=== PATIENT | female | born 1960 | race Caucasian/White ===

== ENCOUNTER → 2016-09-30 | Outpatient (CLI) | payer OTHER | LOC: FIMAGING 11:14 | DX: Z12.31 Encounter for screening mammogram for malignant neoplasm of breast (principal) | CPT/HCPCS: G0202 ==

== ENCOUNTER → 2016-10-07 | Outpatient (CLI) | payer OTHER | LOC: BMCIMAGING 12:28 | DX: Z12.39 Encounter for other screening for malignant neoplasm of breast (principal); R92.0 Mammographic microcalcification found on diagnostic imaging of breast | CPT/HCPCS: G0206 ==

== ENCOUNTER → 2016-10-11 | Day surgery (SDC) | payer OTHER ==
[~2016-10-11] MED LIST: THROMBIN (RECOMBINANT) 5,000 UNIT VIAL TP ONE
== END | disposition home or self-care (01) ==
LOC: FIMAGING 08:41
PROVIDERS: ATTEND Family Medicine
PROC: BH01ZZZ Plain Radiography of Left Breast (ICD-10-PCS; principal; 2016-10-11)
PROC: 0HBU3ZX Excision of Left Breast, Percutaneous Approach, Diagnostic (ICD-10-PCS; principal; 2016-10-11)
DX: R92.0 Mammographic microcalcification found on diagnostic imaging of breast (principal)
CPT/HCPCS: G0206

== ENCOUNTER → 2016-10-25 | Day surgery (SDC) | payer OTHER | END | disposition home or self-care (01) | LOC: FIMAGING 07:25 | PROVIDERS: ATTEND Surgery | PROC: 0HHU31Z Insertion of Radioactive Element into Left Breast, Percutaneous Approach (ICD-10-PCS; principal; 2016-10-25) | PROC: 3E0W3KZ Introduction of Other Diagnostic Substance into Lymphatics, Percutaneous Approach (ICD-10-PCS; 2016-10-25) | DX: R92.0 Mammographic microcalcification found on diagnostic imaging of breast (principal); D05.12 Intraductal carcinoma in situ of left breast | CPT/HCPCS: 19281; 38790; 76098; A9520 ==

== ENCOUNTER → 2016-11-22 | Outpatient (CLI) | payer OTHER | LOC: BRMIMAGING 15:07 | PROVIDERS: ATTEND Internal Medicine Hematology & Oncology | DX: Z13.820 Encounter for screening for osteoporosis (principal); M85.80 Other specified disorders of bone density and structure, unspecified site; Z78.0 Asymptomatic menopausal state; Z85.3 Personal history of malignant neoplasm of breast ==

== ENCOUNTER 2017-03-28 09:06 | Emergency (ER) | payer OTHER ==
[2017-03-28 09:25] VITALS: BP 139/72; PULSE 69; RESP 14; O2SAT 99
--- NOTE | 2017-03-28 09:28 | EDPHY ---
H & P Stated Complaint: Patient rolled right ankle. Time Seen by Provider: 03/28/17 09:26 HPI/ROS: Chief Complaint: Right foot pain HPI: 56-year-old woman was walking yesterday from the grocery store when she everted her right foot. She has had pain in the medial aspect of her foot since that time. No new numbness or tingling. She is unable to bear weight secondary to pain. No fevers or chills. No prior injuries. ROS: 10 point Review of Systems is negative except as noted in the HPI. Family History: [non-contributory] Physical Exam: General: Awake, alert, no acute distress Right lower extremity: Right knee: Nontender, full range of motion without pain Right ankle: Nontender, decreased range of motion secondary to pain in the foot Right foot: She has tenderness at the base of the 1st metatarsal without deformity. There is no swelling. She has 2+ DP and PT pulses. Capillary refills less than 2 seconds. Skin: No rash - Medical/Surgical History Other PMH: Lumpectomy, hysterectomy. Constitutional: Initial Vital Signs Heart Rate 69 03/28/17 09:23 Respiratory Rate 14 03/28/17 09:23 Blood Pressure 139/72 H 03/28/17 09:23 O2 Sat (%) 99 03/28/17 09:23 Allergies/Adverse Reactions: cephalexin monohydrate [From Keflex] Allergy (Intermediate, Verified 03/28/17 09 :24) NAUSEA oxycodone HCl [From Percocet] Allergy (Intermediate, Verified 03/28/17 09:24) NAUSEA propoxyphene napsylate [From Darvocet-N 100] Allergy (Intermediate, Verified 09:24) NAUSEA Home Medications: Medication Instructions Recorded Cozaar 02/07/11 Tamoxifen Citrate 03/28/17 Medical Decision Making - Diagnostics Imaging Results: No obvious fracture on x-ray per my interpretation. Imaging: I viewed and interpreted images myself ED Course/Re-evaluation: Patient has been placed in a postop shoe. She was offered crutches but declined. I have referred for orthopedics follow-up in about a week. Departure - Departure Disposition: Home, Routine, Self-Care Clinical Impression: Foot sprain Condition: Good Instructions: Foot Sprain (ED) Additional Instructions: You may wear the orthopedic shoe as needed for comfort. Use crutches if he has significant pain with walking. Follow up with Orthopedics in about a week if you're still having pain. You may alternate ibuprofen with acetaminophen as needed for pain. Apply ice for 15 minutes 3 to 4 times a day for the next 3 days. Referrals: Jasmyne Israel [Primary Care Provider] - As per Instructions Bc Kern MD [Medical Doctor] - As per Instructions
== END 2017-03-28 10:52 | disposition home or self-care (01) ==
LOC: CED 09:06
DX: S93.601A Unspecified sprain of right foot, initial encounter (principal); X58.XXXA Exposure to other specified factors, initial encounter; Y92.512 Supermarket, store or market as the place of occurrence of the external cause; Y99.8 Other external cause status; Y93.01 Activity, walking, marching and hiking
CPT/HCPCS: 73630-PO; L3260

== ENCOUNTER → 2017-05-08 | Outpatient (CLI) | payer OTHER | LOC: FIMAGING 11:52 | PROVIDERS: ATTEND Surgery | DX: Z12.39 Encounter for other screening for malignant neoplasm of breast (principal); Z85.3 Personal history of malignant neoplasm of breast | CPT/HCPCS: G0206 ==

== ENCOUNTER → 2017-09-15 | Outpatient (CLI) | payer OTHER | LOC: FIMAGING 13:00 | PROVIDERS: ATTEND Surgery | DX: R92.8 Other abnormal and inconclusive findings on diagnostic imaging of breast (principal); Z85.3 Personal history of malignant neoplasm of breast ==

== ENCOUNTER 2017-11-10 06:31 | Day surgery (SDC) | payer OTHER ==
[2017-11-10] MEDS ORDERED: LR 1,000 ML IV ONE (07:01)
--- NOTE | 2017-11-10 08:56 | PDANEPAE ---
ANE History of Present Illness 57 yo for colonoscopy ANE Past Medical History - Cardiovascular History Hx Hypertension: Yes Hx Arrhythmias: No Hx Chest Pain: No Hx Coronary Artery / Peripheral Vascular Disease: No Hx CHF / Valvular Disease: No Hx Palpitations: No - Pulmonary History Hx COPD: No Hx Asthma/Reactive Airway Disease: Yes Hx Recent Upper Respiratory Infection: No Hx Oxygen in Use at Home: No Hx Sleep Apnea: No Sleep Apnea Screening Result - Last Documented: Negative Pulmonary History Comment: ASTHMA ENVIRONMENTAL TRIGGERS. WORSE WITH DUST IN AIR. PNEUMONIA 2014 - Neurologic History Hx Cerebrovascular Accident: No Hx Seizures: No Hx Dementia: No - Endocrine History Hx Diabetes: No - Renal History Hx Renal Disorders: Yes Renal History Comment: UTI 08/2017 - Liver History Hx Hepatic Disorders: No - Neurological & Psychiatric Hx Hx Neurological and Psychiatric Disorders: No - Cancer History Hx Cancer: Yes Cancer History Comment: BREAST - Congenital Disorder History Hx Congenital Disorders: No - GI History Hx Gastrointestinal Disorders: No - Other Health History Other Health History: NEG - Chronic Pain History Chronic Pain: No - Surgical History Prior Surgeries: REEXCISION LT BREAST MARGINS 11/2016. LT BREAST LUMPECTOMY WITH SNL. WITH REMVL 3 LYMPH NODES. WITH SOME POST LYMPHADEMA. TUBAL LIGATIONS. NASAL RECONSTRUCTION FOR FX. PARTIAL HYSTERECTOMY. RT BREAST FIBROID REMVL ANE Review of Systems Review of Systems: - Exercise capacity METS (RN): 4 METS ANE Patient History - Allergies Allergies/Adverse Reactions: cephalexin monohydrate [From Keflex] Allergy (Intermediate, Verified 03/28/17 09 :24) NAUSEA oxycodone HCl [From Percocet] Allergy (Intermediate, Verified 03/28/17 09:24) NAUSEA propoxyphene napsylate [From Darvocet-N 100] Allergy (Intermediate, Verified 09:24) NAUSEA Iodinated Contrast- Oral and IV Dye Allergy (Verified 10/20/17 14:46) PASSED OUT shellfish derived Allergy (Verified 10/20/17 14:47) Anaphylaxis - Home Medications Home Medications: Tamoxifen Citrate DAILY 03/28/17 [Last Taken 11/09/17] Aspirin DAILY 10/20/17 [Last Taken 11/03/17] Flovent Hfa DAILY 10/20/17 [Last Taken 11/10/17] Losartan-Hctz 100-12.5 mg Tab DAILY 10/20/17 [Last Taken 11/09/17] Proair Hfa PRN 10/20/17 [Last Taken 11/08/17] - NPO status NPO Status: no food or drink >8 hours NPO Since - Liquids (Date): 11/09/17 NPO Since - Liquids (Time): 21:30 NPO Since - Solids (Date): 11/09/17 NPO Since - Solids (Time): 07:00 - Smoking Hx Smoking Status: Never smoked ANE Labs/Vital Signs - Vital Signs Blood Pressure: 130/81 Heart Rate: 70 Respiratory Rate: 16 O2 Sat (%): 98 Height: 5 ft 7.5 in Weight: 73.028 kg ANE Physical Exam - Airway Mallampati Score: Class 2 Mouth exam: normal dental/mouth exam - Pulmonary Pulmonary: no respiratory distress - Cardiovascular Cardiovascular: regular rate and rhythym - ASA Status ASA Status: II ANE Anesthesia Plan Anesthesia Plan: MAC
[2017-11-10] MEDS ORDERED: PROPOFOL/EMULSION 500 MG/50 ML BOTTLE IV ONE (08:59)
--- NOTE | 2017-11-10 09:10 | PDGENHP ---
History & Physical Chief Complaint: SCREENING History of Present Illness: screening, no fhx cc Pertinent Past, Social, Family History: no tobacco. alcohol occ. no fhx cc Relevant Physical Exam: a+ox3. CTA. S1S2. +BS ,soft nt Cardiorespiratory Assessment: class 2
[2017-11-10] MEDS ORDERED: NALOXONE HCL 0.4 MG/ML INJ IVP PRN (09:54)
--- NOTE | 2017-11-10 09:54 | POSTANESTH ---
Post Anesthetic Evaluation Cardiovascular Status: Normal, Stable Respiratory Status: Normal, Stable Level of Consciousness/Mental Status: Can Participate in Eval Pain Control: Adequate, Prn Tx Ordered Nausea/Vomiting Control: Adequate, Prn Tx Ordered Complications Possibly Related to Anesthesia: None Noted
--- NOTE | 2017-11-10 10:20 | GIREPORT ---
[facility] Surgical Services - Endoscopy Department Patient Name: Marija Aldrich Procedure Date: 11/10/2017 8:30 AM Patient Type: Outpatient Attending MD/ ER Physician: Kt Rascon Procedure: Colonoscopy Indications: Screening for colorectal malignant neoplasm Providers: Curtis Estrada MD Referring MD: Verito Israel MD Medicines: Total IV Anesthesia (TIVA) = IV general Complications: No immediate complications. Estimated blood loss: Minimal. Description of Procedure: After obtaining informed consent, the scope was passed under direct vis ion. Throughout the procedure, the patient's blood pressure, pulse, and oxyg en saturations were monitored continuously. The Colonoscope with irrigatio n channel was introduced through the anus and advanced to the cecum, identified by the appendiceal orifice, ileocecal valve and palpation. T he colonoscopy was performed without difficulty. The patient tolerated the procedure well. The quality of the bowel preparation was good. Findings: The digital rectal exam was normal. A 6 mm polyp was found in the ascending colon. The polyp was sessile. T he polyp was removed with a cold snare. Resection and retrieval were compl ete. Estimated blood loss was minimal. The exam was otherwise without abnormality. Estimated Blood Loss: Estimated blood loss was minimal. Post Op Diagnosis: - One 6 mm polyp in the ascending colon, removed with a cold snare. Res ected and retrieved. - The examination was otherwise normal. Recommendation: - Await pathology results. - My office will call with the pathology result with 5-7 days. If you h ave not heard from my office by 12-14, do not assume the pathology is abdiel l, please call [phone] to get the pathology results. - Repeat colonoscopy in 5 years for surveillance based on pathology res ults. If adenomatous or hyperplastic, 5 years is correct. IF any villous architecture, then the interval is 3 years - Resume previous diet. - Patient has a contact number available for emergencies. The signs and symptoms of potential delayed complications were discussed with the pat ient. Return to normal activities tomorrow. Written discharge instructions we re provided to the patient. - Avoid Aspirin and NSAID's for 7-10 days except as used for cardiac or stroke prevention. - Discharge patient to home (ambulatory). - Return to primary care physician as previously scheduled. - Thank you for allowing me to help in your patient's care. Do not hesi giordano to call with any questions. Attending Participation: I personally performed the entire procedure. Sean Perkins M.D Gregorio Estrada MD 11/10/2017 10:19:52 AM This report has been signed electronicallyMathew MD Sean Number of Addenda: 0 Note Initiated On: 11/10/2017 8:30 AM Total Procedure Duration Time 0 hours 29 minutes 38 seconds [email or web address]
[2017-11-10 11:33] VITALS: BP 107/67
== END 2017-11-10 11:20 | disposition home or self-care (01) ==
LOC: FSGY 06:31
PROVIDERS: ATTEND Internal Medicine Gastroenterology
PROC: 0DBK8ZX Excision of Ascending Colon, Via Natural or Artificial Opening Endoscopic, Diagnostic (ICD-10-PCS; principal; 2017-11-10 09:00)
DX: D12.2 Benign neoplasm of ascending colon (principal); Z12.11 Encounter for screening for malignant neoplasm of colon
CPT/HCPCS: J2704

== ENCOUNTER 2018-01-28 15:48 | Emergency (ER) | payer OTHER ==
[2018-01-28] MEDS ORDERED: IBUPROFEN 600 MG TAB PO ONE (16:14)
--- NOTE | 2018-01-28 16:22 | EDPHY ---
H & P Time Seen by Provider: 01/28/18 15:50 HPI/ROS: This patient fell in her garden on [facility] shortly prior to arrival striking her upper back against the rock with 9/10 pain initially the diminish to current fiber 6/10 after Tylenol prior to arrival. She also struck her occiput against the ground but reports only localized pain at the site of impact. She denies any LOC, feeling of being dazed, no vision changes or other complaints associated with this. She states that the pain at the occiput is very mild. She was driven here by her by private vehicle for further evaluation. ROS: Neuro: No confusion, no headache, no numbness tingling or focal weakness. Musculoskeletal: She has right trapezius pain but no midline neck pain. No midline lumbar pain. No extremity injuries. Integumentary: No lacerations abrasions Pulmonary: No chest wall pain or shortness of breath GI: No belly pain : No hematuria since the fall 5 point ROS is otherwise negative. Past Medical/Surgical History: Asthma Lumpectomy Hypertension Smoking Status: Never smoked Physical Exam: Physical exam: Vital signs are normal General: Patient is in no acute distress. HEENT: Is no external evidence of trauma on exam. Nose atraumatic. Ears: Clear bilaterally with no hemotympanum. Oropharynx: No dental trauma or malocclusion. No intraoral lacerations. Eyes: Pupils are equal and reactive to light. Extraocular motions are intact. Optic fundi: Clear with no papilledema or hemorrhage. Neck: Trachea is midline with no stridor. The patient has no midline neck tenderness and retains a full range of motion without increase in pain. She does have right trapezius tenderness and mild spasm. Lungs: Clear to auscultation bilaterally Cardiac: Regular rate and rhythm no murmur gallop or rub. Chest: Nontender. Abdomen: Soft nontender no organomegaly Back: The patient has midline moderate to exquisite tenderness around the region of T5-T7 or so with associated swelling. No other midline tenderness in neck or back. She has mild right lumbar paraspinous muscular tenderness as well. Extremities: Atraumatic Neuro: GCS of 15. Cranial nerves II through XII intact. She maintains 2+ symmetric patellar and Achilles DTRs bilaterally in 5/5 strength in great toe dorsiflexion plantar flexion bilaterally. She also maintains normal light touch sensory exam bilateral upper and lower extremities. No sensory or motor deficits are appreciated. Initial differential diagnosis: Thoracic compression fracture, spinous process fracture or other fracture, traumatic hematoma, thoracic strain, disc herniation Constitutional: Initial Vital Signs Temperature (C) 36.5 C 01/28/18 15:54 Heart Rate 75 01/28/18 15:54 Respiratory Rate 18 01/28/18 15:54 Blood Pressure 161/77 H 01/28/18 15:54 O2 Sat (%) 97 01/28/18 15:54 O2 Delivery Mode Room Air Allergies/Adverse Reactions: cephalexin monohydrate [From Keflex] Allergy (Intermediate, Verified 01/28/18 15 :53) NAUSEA oxycodone HCl [From Percocet] Allergy (Intermediate, Verified 01/28/18 15:53) NAUSEA propoxyphene napsylate [From Darvocet-N 100] Allergy (Intermediate, Verified 15:53) NAUSEA Iodinated Contrast- Oral and IV Dye Allergy (Verified 01/28/18 15:53) PASSED OUT shellfish derived Allergy (Verified 01/28/18 15:53) Anaphylaxis Home Medications: Medication Instructions Recorded Tamoxifen Citrate DAILY 03/28/17 Aspirin DAILY 10/20/17 Flovent Hfa DAILY 10/20/17 Losartan-Hctz 100-12.5 mg Tab DAILY 10/20/17 Proair Hfa PRN 10/20/17 Methocarbamol [Robaxin 750 mg (*)] 750 - 1,500 mg PO QID PRN #30 tab 01/28/18 MDM/Departure - MDM Imaging Results: Thoracic spine x-rays: Soft tissue swelling. Otherwise normal by my interpretation Cervical spine x-rays: Mild degenerative changes. Otherwise normal by my interpretation Imaging: I viewed and interpreted images myself Medications Given: Discontinued Medications Ibuprofen (Motrin) 600 mg PO EDNOW ONE Stop: 01/28/18 16:15 Last Admin: 01/28/18 16:18 Dose: 600 mg ED Course/Re-evaluation: Patient accepted ibuprofen in addition to the Tylenol that she took prior to arrival. She declined Valium or other analgesics. Discussion: Patient with a scalp hematoma without evidence of significant closed head injury-no concussive symptoms or focal symptoms, cervical muscle strain with negative radiographs and a midline hematoma overlying the thorax is spine without evidence of fracture by radiography, radiculopathy on exam or other red flag findings. I counseled regarding her diagnoses and suggested ice , foot NSAIDs, Tylenol and methocarbamol. She is also given closed-head injury precautions understands need to return emergency department should she develop unbearable headache, confusion, vomiting more than once or other worsening symptoms despite treatment plan. She will follow up with primary care physician for any ongoing symptoms that persist beyond the next 5-7 days. - Depart Disposition: Home, Routine, Self-Care Clinical Impression: Cervical strain Qualifiers: Encounter type: initial encounter Qualified Code(s): S16.1XXA - Strain of muscle, fascia and tendon at neck level, initial encounter Traumatic hematoma of thoracic region Qualifiers: Encounter type: initial encounter Qualified Code(s): S20.20XA - Contusion of thorax, unspecified, initial encounter Minor head injury without loss of consciousness Qualifiers: Encounter type: initial encounter Qualified Code(s): S09.90XA - Unspecified injury of head, initial encounter Condition: Good Instructions: Cervical Strain (ED), Head Injury (ED), Hematoma (ED) Additional Instructions: Diagnoses: 1. Cervical strain 2. Thoracic hematoma 4. Minor head injury Plan: Ice to sore areas 20 min at a time 3 times a day or more for the next 3- 5 days Ibuprofen Tylenol for pain as needed Methocarbamol muscle relaxant in addition as needed Follow up with primary care physician for any ongoing symptoms that persist beyond the next 7-10 days Return for any significant worsening such as unbearable headache, vomiting more than once, confusion or other concerns. Prescriptions: Methocarbamol [Robaxin 750 mg (*)] 750 - 1,500 mg PO QID PRN #30 tab PRN Reason: Muscle Spasms Referrals: Jasmyne Israel [Primary Care Provider] - As per Instructions
[2018-01-28 17:42] VITALS: BP 131/77
== END 2018-01-28 17:24 | disposition home or self-care (01) ==
LOC: CED 15:48
DX: S20.20XA Contusion of thorax, unspecified, initial encounter (principal); S16.1XXA Strain of muscle, fascia and tendon at neck level, initial encounter; S09.90XA Unspecified injury of head, initial encounter; J45.909 Unspecified asthma, uncomplicated; I10 Essential (primary) hypertension; Z79.82 Long term (current) use of aspirin; W01.198A Fall on same level from slipping, tripping and stumbling with subsequent striking against other object, initial encounter; Y92.89 Other specified places as the place of occurrence of the external cause
CPT/HCPCS: 72050-PO

== ENCOUNTER → 2018-04-13 | Outpatient (CLI) | payer OTHER ==
[~2018-04-13] MED LIST changes: +BUPIVACAINE 0.5% 30 ML SDV ONE; +LIDOCAINE 1% 300 MG/30 ML SDV ONE; -THROMBIN (RECOMBINANT) 5,000 UNIT VIAL TP ONE
== END ==
LOC: FIMAGING 07:17
PROVIDERS: ATTEND Family Medicine
PROC: 0HBU3ZX Excision of Left Breast, Percutaneous Approach, Diagnostic (ICD-10-PCS; principal; 2018-04-13)
DX: C50.912 Malignant neoplasm of unspecified site of left female breast (principal); Z17.0 Estrogen receptor positive status [ER+]

== ENCOUNTER → 2018-04-20 | Outpatient (CLI) | payer OTHER | LOC: FIMAGING 10:23 | PROVIDERS: ATTEND Internal Medicine Hematology & Oncology | DX: R19.09 Other intra-abdominal and pelvic swelling, mass and lump (principal); D05.12 Intraductal carcinoma in situ of left breast ==

== ENCOUNTER 2018-05-01 05:37 | Observation (INO) | payer OTHER ==
[2018-05-01] MEDS ORDERED: ceFAZolin 2 GM/DEXTROSE 100 ML IV ONE (05:47)
[2018-05-01] MEDS ORDERED: LIDOCAINE 1% 2 ML INJ ID PRN (05:49)
[2018-05-01] MEDS ORDERED: LR 1,000 ML IV ONE (05:49)
[2018-05-01] MEDS ORDERED: BUPIVACAINE/EPI 0.5% 30 ML SDV ONE (06:56)
[2018-05-01] MEDS ORDERED: LIDO/EPI 1% **for epidural** 30 ML SDV ONE (06:56)
--- NOTE | 2018-05-01 07:09 | PDHPUP ---
History & Physical Update H&P update statement: This history and physical update is based on an assessment of the patient which was completed after admission or registration (within 24 hours), but prior to the surgery/procedure. H&P update: H&P reviewed & patient examined, no change in patient's condition since H&P completed
--- NOTE | 2018-05-01 07:10 | POSTOPPROG ---
Post Op Note Date of Operation: 05/01/18 Surgeon: Chente Whiting Anesthesiologist: Gabriele Duron Anesthesia: GET(General Endotracheal) Pre-op Diagnosis: Breast cancer, ovarian mass Post-op Diagnosis: Same Procedure: RIJ port with US and fluoro Inf/Abcess present in the surg proc area at time of surgery?: No EBL: Minimal
[2018-05-01] MEDS ORDERED: MIDAZOLAM 2 MG/2 ML VIAL ONE (07:12)
[2018-05-01] MEDS ORDERED: MIDAZOLAM 2 MG/2 ML VIAL IVP ONE (07:15)
--- NOTE | 2018-05-01 07:16 | PDANEPAE ---
ANE Past Medical History - Cardiovascular History Hx Hypertension: Yes Hx Arrhythmias: No Hx Chest Pain: No Hx Coronary Artery / Peripheral Vascular Disease: No Hx CHF / Valvular Disease: No Hx Palpitations: No - Pulmonary History Hx COPD: No Hx Asthma/Reactive Airway Disease: Yes Hx Recent Upper Respiratory Infection: No Hx Oxygen in Use at Home: No Hx Sleep Apnea: No Sleep Apnea Screening Result - Last Documented: Negative Pulmonary History Comment: ASTHMA ENVIRONMENTAL TRIGGERS. WORSE WITH DUST IN AIR. PNEUMONIA 2014 - Neurologic History Hx Cerebrovascular Accident: No Hx Seizures: No Hx Dementia: No - Endocrine History Hx Diabetes: No - Renal History Hx Renal Disorders: Yes Renal History Comment: UTI 08/2017 - Liver History Hx Hepatic Disorders: No - Neurological & Psychiatric Hx Hx Neurological and Psychiatric Disorders: No - Cancer History Hx Cancer: Yes Cancer History Comment: BREAST CA - LUMPECTOMY & RE-EXCISION L - Congenital Disorder History Hx Congenital Disorders: No - GI History Hx Gastrointestinal Disorders: No - Other Health History Other Health History: NEG - Chronic Pain History Chronic Pain: No - Surgical History Prior Surgeries: COLONOSCOPY 11/2017. REEXCISION LT BREAST MARGINS 11/2016. LT BREAST LUMPECTOMY WITH SNL. WITH REMVL 3 LYMPH NODES. WITH SOME POST LYMPHADEMA. TUBAL LIGATIONS. NASAL RECONSTRUCTION FOR FX. PARTIAL HYSTERECTOMY. RT BREAST FIBROID REMVL ANE Review of Systems Review of Systems: - Exercise capacity METS (RN): 4 METS ANE Patient History - Allergies Allergies/Adverse Reactions: cephalexin monohydrate [From Keflex] Allergy (Intermediate, Verified 01/28/18 15 :53) NAUSEA oxycodone HCl [From Percocet] Allergy (Intermediate, Verified 01/28/18 15:53) NAUSEA propoxyphene napsylate [From Darvocet-N 100] Allergy (Intermediate, Verified 15:53) NAUSEA Iodinated Contrast- Oral and IV Dye Allergy (Verified 01/28/18 15:53) PASSED OUT shellfish derived Allergy (Verified 01/28/18 15:53) Anaphylaxis - Home Medications Home Medications: Flovent Hfa DAILY 10/20/17 [Last Taken 04/30/18 08:00] Losartan-Hctz 100-12.5 mg Tab DAILY 10/20/17 [Last Taken 04/30/18 08:00] Proair Hfa PRN 10/20/17 [Last Taken 04/24/18] Herbals/Supplements -Info Only 04/30/18 [Last Taken 04/30/18 08:00] - NPO status NPO Since - Liquids (Date): 05/01/18 NPO Since - Liquids (Time): 04:00 NPO Since - Solids (Date): 04/30/18 NPO Since - Solids (Time): 22:00 - Smoking Hx Smoking Status: Never smoked ANE Labs/Vital Signs - Vital Signs Blood Pressure: 140/82 Heart Rate: 73 Respiratory Rate: 19 O2 Sat (%): 97 Height: 168.91 cm Weight: 72.575 kg ANE Physical Exam - Airway Neck exam: FROM Mallampati Score: Class 2 Mouth exam: normal dental/mouth exam - Pulmonary Pulmonary: no respiratory distress - Cardiovascular Cardiovascular: regular rate and rhythym - ASA Status ASA Status: II ANE Anesthesia Plan Anesthesia Plan: general endotracheal anesthesia
[2018-05-01] MEDS ORDERED: fentaNYL 250 MCG/5 ML INJ ONE (07:24)
[2018-05-01] MEDS ORDERED: PROPOFOL 200 MG/20 ML VIAL ONE (07:24)
[2018-05-01] MEDS ORDERED: LIDOCAINE 2% 2 ML INJ ONE (07:30)
[2018-05-01] MEDS ORDERED: PROPOFOL/EMULSION 500 MG/50 ML BOTTLE IV ONE ×2 (07:42→08:16)
[2018-05-01] MEDS ORDERED: REMIFENTANIL HCL 1 MG VIAL ONE (08:24)
[2018-05-01] MEDS ORDERED: DEXAMETHASONE 4 MG/ML VIAL ONE (08:28)
[2018-05-01] MEDS ORDERED: ONDANSETRON 4 MG/2 ML VIAL ONE (08:28)
[2018-05-01] MEDS ORDERED: ROCURONIUM 100 MG/10 ML VIAL ONE (08:57)
[2018-05-01] MEDS ORDERED: GLYCOPYRROLATE 0.2 MG/1 ML VIAL ONE ×3 (08:57)
[2018-05-01] MEDS ORDERED: NEOSTIGMINE METHYLSULFATE 5 MG/5 ML SYR ONE (08:58)
[2018-05-01] MEDS ORDERED: LR 500 ML IV PRN (09:39)
[2018-05-01] MEDS ORDERED: ONDANSETRON 4 MG/2 ML VIAL IVP PRN (09:39)
[2018-05-01] MEDS ORDERED: NALOXONE HCL 0.4 MG/ML INJ IVP PRN (09:39)
[2018-05-01] MEDS ORDERED: PROMETHAZINE HCL 25 MG/ML INJ IVP PRN (09:39)
[2018-05-01] MEDS ORDERED: fentaNYL 100 MCG/2 ML INJ ONE ×2 (09:41→10:37)
[2018-05-01] MEDS: fentaNYL 100 MCG/2 ML INJ IVP PRN ×3 (09:44→10:39)
[2018-05-01] MEDS ORDERED: ONDANSETRON DISINTEGRATING 4 MG TAB PO PRN (09:59)
[2018-05-01] MEDS ORDERED: LR 1,000 ML IV SCH (10:00)
--- NOTE | 2018-05-01 11:47 | GOP ---
DATE OF OPERATION: 05/01/2018 SURGEON: Chente Whiting MD ANESTHESIA: General. ANESTHESIOLOGIST: Dr. Duron. PREOPERATIVE DIAGNOSIS: Breast cancer. POSTOPERATIVE DIAGNOSIS: Breast cancer. PROCEDURE PERFORMED: Right internal jugular single-lumen PowerPort placement with ultrasound and fluoroscopic guidance. FINDINGS: None. INDICATIONS: 57-year-old female with a newly diagnosed left breast carcinoma. She also has an incidentally identified left ovarian cystic mass. She is undergoing a left salpingo-oophorectomy with port placement at this time for anticipated neoadjuvant therapy. Risks and benefits were explained including bleeding, infection, pneumothorax, as well as port malfunction. All questions were answered. She desires to proceed. DESCRIPTION OF PROCEDURE: General anesthesia was induced. The right neck and chest were infiltrated with 1% lidocaine and 0.5% Marcaine. The jugular vein was directly punctured using ultrasound guidance. The guidewire passed smoothly into the atrium, as confirmed using fluoroscopy. A counter incision was made on the chest wall. The low-profile port was tunneled cephalad. The vein was dilated and the catheter passed in the atrial junction under direct fluoroscopic visualization. Smooth contouring was noted within the neck as well as satisfactory terminal positioning above the heart. Upon completion, the port flushed easily with heparinized saline solution. The wound was closed in layers with absorbable sutures followed by Dermabond. Care of the case was turned to Dr. Ortiz for the gynecological portion of her case. /[id number]/MODL MTDD
--- NOTE | 2018-05-01 13:12 | ASMTCMCOM ---
CM Note CM Note Notes: 57yr old female admitted due to Breast CA, Ovarian mass. She has a Hx ofHTN, Kidney stones, Asthma, L Breast CA. Patient to have R breast mastectomy. She lives with her Toribio in [place], [place]. JULIOCESAR to follow for possible discharge needs. Date Signed: 05/01/2018 01:11 PM Electronically Signed By:Sissy Christopher LCSW
--- NOTE | 2018-05-01 13:53 | POSTOPPROG ---
Post Op Note Date of Operation: 05/01/18 Surgeon: Shruti Ortiz Server Service Assistant: ASHWIN Decker Anesthesiologist: Fletcher Duron Anesthesia: LMA Pre-op Diagnosis: pelvic mass, breast cancer Post-op Diagnosis: same Indication: undiagnosed pelvic mass Procedure: removal of pelvic mass via laparatomy, BOYD , BSO Findings: left ovarian mass 9cm Inf/Abcess present in the surg proc area at time of surgery?: No EBL: Minimal
[2018-05-01] MEDS: HYDROCODONE/APAP 5/325 TAB PO PRN ×2 (14:12→20:42)
--- NOTE | 2018-05-01 14:42 | GOP ---
DATE OF OPERATION: 05/01/2018 SURGEON: Shruti Ortiz MD WHEEL LACER AND TRUER: Lizzeth CHRISTOPHER ANESTHESIA: General anesthesia. ANESTHESIOLOGIST: Dr. Duron. PREOPERATIVE DIAGNOSIS: 1. Newly diagnosed left adnexal mass. 2. History of recent diagnosis of aggressive breast cancer. POSTOPERATIVE DIAGNOSIS: 1. Newly diagnosed left adnexal mass. 2. History of recent diagnosis of aggressive breast cancer. PROCEDURE PERFORMED: Removal of pelvic mass via laparotomy, lysis of adhesions, and bilateral salpin go-oophorectomy. FINDINGS: An about 9 cm multicystic mass originating from the left ovary. It was completely adhesed to the left sidewall and also to small bowel. The right ovary and fallopian tube within normal limi ts. ESTIMATED BLOOD LOSS: Minimal. INDICATIONS: Patient is a 57-year-old who last year was diagnosed with left breast DCIS and underwen t lumpectomy, recently diagnosed with a second primary in that same breast of infiltrating ductal car cinoma, and because of the size and aggressiveness, will need to undergo neoadjuvant chemotherapy. P diallo had a PET scan to further diagnosis and incidentally was noted to have a 9.8 cm left adnexal m ass. Ultrasound confirmed the same. CA-125 is normal. Plan to remove pelvic mass so that patient c an then have a tissue diagnosis and then start her chemotherapy as soon as possible. DESCRIPTION OF PROCEDURE: With informed consent signed, patient was taken to the operating room, [facility] under general anesthesia. Dr. Jefe Whiting started with placing a port in her right chest wall and o nce his procedure was completed, the patient was reprepped and draped, and then, previous hysterectom y incision used for this incision, and this was pre injected with 10 cc of 0.25% Marcaine. A scalpel used to make about an 8-9 cm incision in the abdominal wall. This was carried down to the underlying fascia, which was extended laterally. Rectus muscles opened sharply and then peritoneum o pened sharply, and O'Олег-O'Ramirez retractor placed. The findings as noted above, and bowel pack ed away with moist laparotomy sponges. Extensive time of dissecting sharply and bluntly the adhesion s off the sidewall and small bowel adhesions to release this left ovarian mass, taking careful attent ion not to rupture anything. Prior to starting the lysis of adhesions, I did do pelvic washings with about 60 cc of normal saline and this was handed off for specimen. So after time of releasing this pelvic mass, the infundibulopelvic ligament was identified, clamped, cut, and suture ligated, and then, the extra pelvic sidewall tissue was dissected sharply and the mas s handed off for specimen, and then attention turned to the right ovary, which appeared normal, and t his was grasped with a [place] and also noted to be adhesed to the pelvic sidewall, so sharp and blun t dissection of this adnexal tissue was done until it was free, and then, the infundibulopelvic ligam ent was isolated, clamped, cut, and suture ligated. Both surgery sites were inspected and noted to be hemostatic, and at this time, the procedure was com pleted. The laparotomy towels were removed and count was correct. The rectus muscles were reattache d together with 2 interrupted sutures., and then, the fascia was closed with a running 0 Vicryl, and then, the subcutaneous tissue was reattached together with 2 to 3 interrupted sutures, and then, the skin was closed with 4-0 Monocryl. The patient was awakened in the operating room, taken to recovery room in stable condition, tolerated procedure the well. COMPLICATIONS: None. /[id number]/MODL
--- NOTE | 2018-05-01 17:21 | SOAPPROG ---
SOAP Progress Note Assessment/Plan: Assessment:doing well. min pain. no nausea. no ambulation yet. avss. comfortable. neck and chest puncture sites flat. ambulate. diet as tolerated. dispo per SIGN LANGUAGE TRANSLATOR. Plan: 05/01/18 17:20 Objective: Vital Signs Temp Pulse Resp BP Pulse Ox 36.9 C 62 18 105/62 94 05/01/18 12:06 05/01/18 16:13 05/01/18 16:13 05/01/18 16:13 05/01/18 16:13 04/30/18 05/01/18 05/02/18 05:59 05:59 05:59 Intake Total 600 Output Total 900 Balance -300 ICD10 Worksheet Patient Problems: Problems Problem Status Onset Cervical strain Acute Minor head injury without loss of consciousness Acute Traumatic hematoma of thoracic region Acute
[2018-05-02] MEDS: HYDROCODONE/APAP 5/325 TAB PO PRN ×2 (00:41→08:57)
[2018-05-02 08:41] VITALS: BP 102/54
[2018-05-02] MEDS ORDERED: ENOXAPARIN 30 MG/0.3 ML SYR SC SCH (09:00)
--- NOTE | 2018-05-02 09:08 | SOAPPROG ---
SOAP Progress Note Assessment/Plan: Assessment/Plan: No concerns with port placement. Discharge per PLODDING OPERATOR. May start Valtrex for possible cold sore. 05/02/18 09:12 Subjective: Woke up several times last night due to pain, most prominent left pelvis. Improved with ice and [place]. Minimal chest and neck incision pain. Mentions an area of localized pain and tingling on her upper lip. History of cold sores, which she is concerned for at this site. Objective: Vital Signs Temp Pulse Resp BP Pulse Ox 36.6 C 64 16 102/54 L 96 05/02/18 08:38 05/02/18 08:38 05/02/18 08:38 05/02/18 08:38 05/02/18 08:38 05/01/18 05/02/18 05/03/18 05:59 05:59 05:59 Intake Total 2121 Output Total 2150 500 Balance -29 -500 Physical Exam: General: A&O x3, appears comfortable HEENT: no notable oral lesions, neck incision clean without erythema, appropriate tenderness and induration Chest: Incision clean without erythema, appropriate tenderness : Santiago catheter in place, urine clear ICD10 Worksheet Patient Problems: Problems Problem Status Onset Cervical strain Acute Minor head injury without loss of consciousness Acute Traumatic hematoma of thoracic region Acute
[2018-05-02] MEDS ORDERED: valACYclovir 500 MG TAB PO SCH (09:15)
--- NOTE | 2018-05-02 10:34 | SOAPPROG ---
SOAP Progress Note Assessment/Plan: Assessment:Pt doing well POD #1 , mayela regular diet and good pain controlwith norco Plan: bladder trial with d/c bolden and ambulate one more time and d/c home , rx for norco and valtrex , f/u in 1 week 05/02/18 10:31 Subjective: had pain last night and norco helped , min nausea and eating well , pos flatus , ambulated as well Objective: abd - distended , pos BS , incision - dressing in place and no bleeding, lungs CTA Vital Signs Temp Pulse Resp BP Pulse Ox 36.6 C 64 16 102/54 L 96 05/02/18 08:38 05/02/18 08:38 05/02/18 08:38 05/02/18 08:38 05/02/18 08:38 05/01/18 05/02/18 05/03/18 05:59 05:59 05:59 Intake Total 2121 Output Total 2150 500 Balance -29 -500 ICD10 Worksheet Patient Problems: Problems Problem Status Onset Cervical strain Acute Minor head injury without loss of consciousness Acute Traumatic hematoma of thoracic region Acute
--- NOTE | 2018-05-02 10:51 | ASMTLACE ---
LACE Length of stay for Answers: 1 day current admission Acuity / Level of Answers: No Care: Did the patient have an inpatient admission? Comorbidities - select Answers: Any tumor (including all that apply lymphoma or leukemia) Other Notes: HTN, Asthma # of Emergency department Answers: 1-2 visits in the last 6 months Score: 5 Date Signed: 05/02/2018 10:50 AM Electronically Signed By:Yoanna Solano RN
--- NOTE | 2018-05-02 10:53 | ASMTCMCOM ---
CM Note CM Note Notes: Medically cleared for discharge. No needs identified at present CM available should needs arise. Plan: Home with family support. Date Signed: 05/02/2018 10:52 AM Electronically Signed By:Yoanna Solano RN
[2018-05-02] MEDS: IBUPROFEN 600 MG TAB PO SCH ×2 (12:03→13:08)
== END 2018-05-02 14:30 | disposition home or self-care (01) ==
LOC: FSGY 05:37 → F3E 09:59 → F1N 11:19
PROVIDERS: ADMIT Obstetrics & Gynecology Gynecology; ATTEND Obstetrics & Gynecology Gynecology
PROC: 0UT20ZZ Resection of Bilateral Ovaries, Open Approach (ICD-10-PCS; principal; 2018-05-01 07:15)
PROC: 0UT70ZZ Resection of Bilateral Fallopian Tubes, Open Approach (ICD-10-PCS; principal; 2018-05-01 07:15)
PROC: 0W9G0ZX Drainage of Peritoneal Cavity, Open Approach, Diagnostic (ICD-10-PCS; principal; 2018-05-01 07:15)
PROC: 02HV33Z Insertion of Infusion Device into Superior Vena Cava, Percutaneous Approach (ICD-10-PCS; 2018-05-01 07:15)
PROC: B5141ZA Fluoroscopy of Left Jugular Veins using Low Osmolar Contrast, Guidance (ICD-10-PCS; 2018-05-01 07:15)
PROC: 0JH60XZ Insertion of Tunneled Vascular Access Device into Chest Subcutaneous Tissue and Fascia, Open Approach (ICD-10-PCS; 2018-05-01 07:15)
PROC: B544ZZA Ultrasonography of Left Jugular Veins, Guidance (ICD-10-PCS; 2018-05-01 07:15)
DX: D27.0 Benign neoplasm of right ovary (principal); D27.1 Benign neoplasm of left ovary; C50.412 Malignant neoplasm of upper-outer quadrant of left female breast; I10 Essential (primary) hypertension; J45.909 Unspecified asthma, uncomplicated
CPT/HCPCS: 36561; 58720; 71045; 76001; 90471; G0378; C1788; G0008; J0690; J1100; J1642; J1650; J2250; J2270; J2405; J2704; J2710; J3010

== ENCOUNTER 2018-07-20 16:04 | Inpatient (IN) | payer OTHER ==
[2018-07-20] MEDS ORDERED: NS 2,100 ML IV ONE (16:59)
--- NOTE | 2018-07-20 17:01 | EDPHY ---
H & P Stated Complaint: Fever/cough/fatigue Time Seen by Provider: 07/20/18 16:50 HPI/ROS: CHIEF COMPLAINT: Cough, fever HISTORY OF PRESENT ILLNESS: Patient is a 57-year-old female who is currently receiving chemotherapy every 2 weeks for recurrent breast cancer. She had a lumpectomy 1 year ago, no chemo radiation at the time. 2 months ago they noticed enlarged lump that is a recurrence. She is currently receiving chemotherapy and they are evaluating for repeat surgery verses radiation etc. 3 weeks ago she developed a sinus infection and was started on Augmentin by her primary doctor Lindy. Symptoms improved however 4 days after she finished antibiotics her symptoms seem to return and she also developed a cough. She saw Dr. Israel yesterday who prescribed doxycycline and encouraged her to use her albuterol because she also has a history of asthma. She followed up today and her symptoms seemed to be worse. She is febrile up to 102 and has a productive cough. She was not hypoxic. She was sent here to rule out pneumonia. Oncologist is Dr. Jorgensen. Severity: Moderate Modifying factors: See above REVIEW OF SYSTEMS: Constitutional: denies: chills, fever, recent illness, recent injury EENTM: denies: blurred vision, double vision, nose congestion Respiratory: See HPI Cardiac: denies: chest pain, irregular heart rate, lightheadedness, palpitations Gastrointestinal/Abdominal: denies: abdominal pain, diarrhea, nausea, vomiting, blood streaked stools Genitourinary: denies: dysuria, frequency, hematuria, pain Musculoskeletal: denies: joint pain, muscle pain Skin: denies: lesions, rash, jaundice, bruising Neurological: denies: headache, numbness, paresthesia, tingling, dizziness, weakness Hematologic/Lymphatic: denies: blood clots, easy bleeding, easy bruising Immunologic/allergic: denies: HIV/AIDS, transplant 10 systems reviewed and negative except as noted EXAM: GENERAL: Slight tachycardic, fatigued HEAD: Atraumatic, normocephalic. EYES: Pupils equal round and reactive to light, extraocular movements intact, sclera anicteric, conjunctiva are normal. ENT: TMs normal, nares patent, oropharynx clear without exudates. Moist mucous membranes. NECK: Normal range of motion, supple without lymphadenopathy or JVD. LUNGS: Breath sounds clear to auscultation bilaterally and equal. No wheezes rales or rhonchi. HEART: Tachycardia, Regular rate and rhythm without murmurs, rubs or gallops. ABDOMEN: Soft, nontender, normoactive bowel sounds. No guarding, no rebound. No masses appreciated. BACK: No CVA tenderness, no spinal tenderness, step-offs or deformities EXTREMITIES: Normal range of motion, no pitting or edema. No clubbing or cyanosis. NEUROLOGICAL: Cranial nerves II through XII grossly intact. Normal speech, normal gait. 5/5 strength, normal movement in all extremities, normal sensation , normal reflexes PSYCH: Normal mood, normal affect. SKIN: Warm, dry, normal turgor, no visible rashes or lesions. Source: Patient Exam Limitations: No limitations - Personal History Current Tetanus/Diphtheria Vaccine: Yes - Medical/Surgical History Hx Asthma: Yes Hx Chronic Respiratory Disease: No Hx Diabetes: No Hx Cardiac Disease: Yes Hx Renal Disease: No Hx Cirrhosis: No Hx Alcoholism: No Other PMH: Lumpectomy, hysterectomy, HTN, asthma, Breast CA - Family History Significant Family History: No pertinent family hx - Social History Smoking Status: Never smoked Alcohol Use: None Drug Use: None Constitutional: Initial Vital Signs Temperature (C) 37.8 C 07/20/18 16:06 Heart Rate 126 H 07/20/18 16:06 Respiratory Rate 23 H 07/20/18 16:06 Blood Pressure 126/71 H 07/20/18 16:06 O2 Sat (%) 93 07/20/18 16:06 O2 Delivery Mode Room Air Allergies/Adverse Reactions: cephalexin monohydrate [From Keflex] Allergy (Intermediate, Verified 07/20/18 16 :12) NAUSEA oxycodone HCl [From Percocet] Allergy (Intermediate, Verified 07/20/18 16:12) NAUSEA propoxyphene napsylate [From Darvocet-N 100] Allergy (Intermediate, Verified 16:12) NAUSEA Iodinated Contrast- Oral and IV Dye Allergy (Verified 07/20/18 16:12) PASSED OUT shellfish derived Allergy (Verified 07/20/18 16:12) Anaphylaxis Home Medications: Medication Instructions Recorded Albuterol [Proventil Inhaler HFA 1 - 2 puffs IH Q4HRS PRN 05/01/18 (*)] Cholecalciferol Vit D3 [Vitamin D3 2,000 iunits PO DAILY 05/01/18 2000 units tab (OTC)] Fluticasone Hfa 220 Mcg [Flovent 2 puffs IH DAILY 05/01/18 220 MCG Hfa MDI (*)] Losartan/Hctz 50/12.5 [Hyzaar 1 tab PO DAILY 05/01/18 50/12.5MG (*)] Multivitamins [Multivitamin (*)] 1 each PO DAILY 05/01/18 Tears/Dextran 70/Hypromellose 1 drop EACHEYE Q2HRS PRN 05/01/18 [Natural Balance Tears (*)] Albuterol [Proventil Neb] 3 ml IH TID PRN 07/20/18 Medical Decision Making - Diagnostics Imaging Results: Imaging Impressions Chest X-Ray 07/20/18 17:00 Impression: Patchy retrocardiac left lower lobe infiltrate, possible early pneumonia. Right-sided Ecuipe-i-Hldd catheter.. Imaging: Discussed imaging studies w/ call center analyst Radiologist ED Course/Re-evaluation: Patient has an early left lower lobe pneumonia. She remains tachycardic. She is not hypoxic. I recommended admission for IV antibiotics and observation. She and her agree with this plan. 6:50 p.m. discussed the case with Dr. Tovar who will admit to the medical service. Differential Diagnosis: Partial list of the Differential diagnosis considered include but were not limited to; pneumonia, bronchitis, upper respiratory tract infection and although unlikely based on the history and physical exam, I also considered PE, acute coronary disease, pneumothorax. - Data Points Laboratory Results: Laboratory Results 07/20/18 17:35 07/20/18 17:35 07/20/18 07/20/18 07/20/18 18:13 17:35 17:35 WBC RBC Hgb Hct MCV MCH MCHC RDW Plt Count MPV Neut % (Auto) Lymph % (Auto) [place] % (Auto) Eos % (Auto) Baso % (Auto) Nucleat RBC Rel Count Absolute Neuts (auto) Absolute Lymphs (auto) Absolute Monos (auto) Absolute Eos (auto) Absolute Basos (auto) Absolute Nucleated RBC Immature Gran % Seg Neutrophils % Band Neutrophils % Lymphocytes % Monocytes % Eosinophils % Basophils % Metamyelocytes % Myelocytes % Promyelocytes % Blast Cells % Immature Gran # Absolute Seg Neuts Absolute Band Neuts Absolute Lymphocytes Absolute Monocytes Absolute Eosinophils Absolute Basophils Absolute Metamyelocyte Absolute Myelocytes Absolute Promyelocytes Absolute Plasma Cells Nucleated RBCs Absolute Blast Cells Plasma Cells % Platelet Estimate Polychromasia PT 14.3 SEC SEC (12.0-15.0) INR 1.09 (0.83-1.16) APTT 33.8 SEC SEC (23.0-38.0) VBG Lactic Acid 1.4 mmol/L mmol/L (0.7-2.1) Sodium Potassium Chloride Carbon Dioxide Anion Gap BUN Creatinine Estimated GFR Glucose Calcium Total Bilirubin Nasal Influenza A PCR Cancelled Nasal Influenza B PCR Cancelled 07/20/18 07/20/18 17:35 17:35 WBC 15.72 10^3/uL H 10^3/uL (3.80-9.50) RBC 2.90 10^6/uL L 10^6/uL (4.18-5.33) Hgb 9.3 g/dL L g/dL (12.6-16.3) Hct 27.7 % L % (38.0-47.0) MCV 95.5 fL fL (81.5-99.8) MCH 32.1 pg pg (27.9-34.1) MCHC 33.6 g/dL g/dL (32.4-36.7) RDW 17.2 % H % (11.5-15.2) Plt Count 324 10^3/uL 10^3/uL (150-400) MPV 9.2 fL fL (8.7-11.7) Neut % (Auto) Not Reported Lymph % (Auto) Not Reported [place] % (Auto) Not Reported Eos % (Auto) Not Reported Baso % (Auto) Not Reported Nucleat RBC Rel Count Not Reported Absolute Neuts (auto) Not Reported Absolute Lymphs (auto) Not Reported Absolute Monos (auto) Not Reported Absolute Eos (auto) Not Reported Absolute Basos (auto) Not Reported Absolute Nucleated RBC Not Reported Immature Gran % Not Reported Seg Neutrophils % 73.5 % % Band Neutrophils % 10.0 % % Lymphocytes % 5.0 % % Monocytes % 9.0 % % Eosinophils % 0.0 % % Basophils % 0.0 % % Metamyelocytes % 2.0 % % Myelocytes % 0.5 % % Promyelocytes % 0.0 % % Blast Cells % 0.0 % % Immature Gran # Not Reported Absolute Seg Neuts 11.55 10^3/uL H 10^3/uL (1.70-6.50) Absolute Band Neuts 1.57 10^3/uL H 10^3/uL (0.00-0.70) Absolute Lymphocytes 0.79 10^3/uL L 10^3/uL (1.00-3.00) Absolute Monocytes 1.41 10^3/uL H 10^3/uL (0.30-0.80) Absolute Eosinophils 0.00 10^3/uL L 10^3/uL (0.03-0.40) Absolute Basophils 0.00 10^3/uL L 10^3/uL (0.02-0.10) Absolute Metamyelocyte 0.31 10^3/mL H 10^3/mL (0.00-0.00) Absolute Myelocytes 0.08 10^3/mL H 10^3/mL (0.00-0.00) Absolute Promyelocytes 0.00 10^3/uL 10^3/uL (0.00-0.00) Absolute Plasma Cells 0.00 10^3/uL 10^3/uL (0.00-0.00) Nucleated RBCs 1.0 /100 WBC H /100 WBC (0-0) Absolute Blast Cells 0.00 10^3/uL 10^3/uL (0.00-0.00) Plasma Cells % 0.0 % % Platelet Estimate ADEQUATE (ADEQ) Polychromasia 1+ H PT INR APTT VBG Lactic Acid Sodium 136 mEq/L mEq/L (135-145) Potassium 3.9 mEq/L mEq/L (3.5-5.2) Chloride 100 mEq/L mEq/L (97-110) Carbon Dioxide 24 mEq/l mEq/l (22-31) Anion Gap 12 mEq/L mEq/L (6-14) BUN 16 mg/dL mg/dL (7-23) Creatinine 0.8 mg/dL mg/dL (0.6-1.0) Estimated GFR > 60 Glucose 116 mg/dL H mg/dL (70-100) Calcium 9.5 mg/dL mg/dL (8.5-10.4) Total Bilirubin 0.4 mg/dL mg/dL (0.1-1.4) Nasal Influenza A PCR Nasal Influenza B PCR Microbiology Results: MICROBIOLOGY 07/20/18 18:13 Nasal, Sinus - Swab Respiratory Panel (PCR) - Final No Organism Detected By Pcr Medications Given: Sodium Chloride (Ns) 2,100 mls @ 350 mls/hr 30 ml/kg infuse over 6 hr (2100 ml ) IV EDNOW ONE PRN Reason: Protocol Stop: 07/20/18 22:58 Last Admin: 07/20/18 17:51 Dose: 2,100 mls Discontinued Medications Acetaminophen (Tylenol) 1,000 mg PO EDNOW ONE Stop: 07/20/18 17:03 Last Admin: 07/20/18 17:51 Dose: 1,000 mg Ibuprofen (Motrin) 600 mg PO EDNOW ONE Stop: 07/20/18 17:03 Last Admin: 07/20/18 17:51 Dose: 600 mg Departure - Departure Disposition: [facility] Inpatient Acute Clinical Impression: Tachycardia Left lower lobe pneumonia Qualifiers: Pneumonia type: due to unspecified organism Qualified Code(s): J18.1 - Lobar pneumonia, unspecified organism Condition: Fair
[2018-07-20] MEDS ORDERED: IBUPROFEN 600 MG TAB PO ONE (17:02)
[2018-07-20] MEDS ORDERED: ACETAMINOPHEN 500 MG TAB PO ONE (17:02)
[2018-07-20 17:52] LABS: PLATELET COUNT 324 10^3/uL (150-400)
[2018-07-20 18:00] LABS: INR 1.09 (0.83-1.16); PROTIME(PATIENT) 14.3 SEC (12.0-15.0)
[2018-07-20] MEDS ORDERED: PROMETHAZINE HCL 25 MG/ML INJ IVP PRN (19:57)
[2018-07-20] MEDS ORDERED: HYDROmorphONE/DILAUDID 1 MG/ML INJ IVP PRN (19:57)
[2018-07-20] MEDS ORDERED: oxyCODONE IR 5 MG TAB PO PRN (19:57)
[2018-07-20] MEDS ORDERED: LORazepam 2 MG/ML INJ IVP PRN (19:57)
[2018-07-20] MEDS ORDERED: ONDANSETRON 4 MG/2 ML VIAL IVP PRN (19:57)
[2018-07-20] MEDS ORDERED: ONDANSETRON DISINTEGRATING 4 MG TAB PO PRN (19:57)
[2018-07-20] MEDS ORDERED: TEARS/DEXTRAN 70/HYPROMELLOSE 15 ML OPHT.BTL EACHEYE PRN (20:08)
[2018-07-20] MEDS ORDERED: CEFEPIME HCL 2 GM in NS 100 ML IV SCH (22:00)
--- NOTE | 2018-07-20 22:06 | PDGENHP ---
History and Physical - Chief Complaint cough/fever - History of Present Illness 57 yo F with PMH of breast cancer with recent recurrence actively undergoing chemotherapy presenting with complaints of cough, fever and generalized weakness and sob. She had what seemed to be a sinus infection several weeks ago and was treated with doxycycline but once she stopped abx her sxs returned and she developed cough as well so yesterday she was started on doxycycline. She notes she has been having chills and heat flashes, she has a non productive cough and feels generally very run down. No one around her has been sick. She has not had any GI complaints. Some chest pain with cough but not otherwise. History Information - Allergies/Home Medication List Allergies/Adverse Reactions: cephalexin monohydrate [From Keflex] Allergy (Intermediate, Verified 07/20/18 16 :12) NAUSEA oxycodone HCl [From Percocet] Allergy (Intermediate, Verified 07/20/18 16:12) NAUSEA propoxyphene napsylate [From Darvocet-N 100] Allergy (Intermediate, Verified 16:12) NAUSEA Iodinated Contrast- Oral and IV Dye Allergy (Verified 07/20/18 16:12) PASSED OUT shellfish derived Allergy (Verified 07/20/18 16:12) Anaphylaxis Home Medications: Albuterol [Proventil Inhaler HFA (*)] 1 - 2 puffs IH Q4HRS PRN 05/01/18 [Last Taken 04/24/18] Cholecalciferol Vit D3 [Vitamin D3 2000 units tab (OTC)] 2,000 iunits PO DAILY 05/01/18 [Last Taken 07/20/18] Fluticasone Hfa 220 Mcg [Flovent 220 MCG Hfa MDI (*)] 2 puffs IH DAILY 05/01/18 [Last Taken 07/20/18] Losartan/Hctz 50/12.5 [Hyzaar 50/12.5MG (*)] 1 tab PO DAILY 05/01/18 [Last Taken 07/20/18] Multivitamins [Multivitamin (*)] 1 each PO DAILY 05/01/18 [Last Taken 04/30/18 08:00] Tears/Dextran 70/Hypromellose [Natural Balance Tears (*)] 1 drop EACHEYE Q2HRS PRN 05/01/18 [Last Taken Unknown] Albuterol [Proventil Neb] 3 ml IH TID PRN 07/20/18 [Last Taken 07/20/18] I have personally reviewed and updated: family history, medical history, social history, surgical history - Past Medical History asthma, cancer (breast), hypertension - Surgical History Reports: cancer surgery - Family History Positive for: non-pertinent - Social History Smoking Status: Never smoked Alcohol Use: None Drug Use: None Additional social history: Review of Systems Review of Systems: ROS: 10pt was reviewed & negative except for what was stated in HPI & below Physical Exam Physical Exam: Temp Pulse Resp BP Pulse Ox 36.8 C 82 16 97/52 L 96 07/20/18 21:01 07/20/18 21:01 07/20/18 21:01 07/20/18 21:01 07/20/18 21:01 Constitutional: chronically ill appearing, uncomfortable Eyes: PERRL Ears, Nose, Mouth, Throat: moist mucous membranes, hearing normal Cardiovascular: no murmur, rub, or gallop, tachycardia, No edema Respiratory: reduced air movement, inspiratory crackles, No respiratory distress Gastrointestinal: normoactive bowel sounds, soft, non-tender abdomen Genitourinary: no bladder tenderness Skin: warm, normal color Musculoskeletal: no muscle tenderness Neurologic: AAOx3 Psychiatric: interacting appropriately, not anxious, not encephalopathic Lab Data & Imaging Review 07/20/18 17:35 07/20/18 17:35 WBC 15.72 10^3/uL (3.80-9.50) H 07/20/18 17:35 RBC 2.90 10^6/uL (4.18-5.33) L 07/20/18 17:35 Hgb 9.3 g/dL (12.6-16.3) L 07/20/18 17:35 Hct 27.7 % (38.0-47.0) L 07/20/18 17:35 MCV 95.5 fL (81.5-99.8) 07/20/18 17:35 MCH 32.1 pg (27.9-34.1) 07/20/18 17:35 MCHC 33.6 g/dL (32.4-36.7) 07/20/18 17:35 RDW 17.2 % (11.5-15.2) H 07/20/18 17:35 Plt Count 324 10^3/uL (150-400) 07/20/18 17:35 MPV 9.2 fL (8.7-11.7) 07/20/18 17:35 Neut % (Auto) Not Reported 07/20/18 17:35 Lymph % (Auto) Not Reported 07/20/18 17:35 [place] % (Auto) Not Reported 07/20/18 17:35 Eos % (Auto) Not Reported 07/20/18 17:35 Baso % (Auto) Not Reported 07/20/18 17:35 Nucleat RBC Rel Count Not Reported 07/20/18 17:35 Absolute Neuts (auto) Not Reported 07/20/18 17:35 Absolute Lymphs (auto) Not Reported 07/20/18 17:35 Absolute Monos (auto) Not Reported 07/20/18 17:35 Absolute Eos (auto) Not Reported 07/20/18 17:35 Absolute Basos (auto) Not Reported 07/20/18 17:35 Absolute Nucleated RBC Not Reported 07/20/18 17:35 Immature Gran % Not Reported 07/20/18 17:35 Seg Neutrophils % 73.5 % 07/20/18 17:35 Band Neutrophils % 10.0 % 07/20/18 17:35 Lymphocytes % 5.0 % 07/20/18 17:35 Monocytes % 9.0 % 07/20/18 17:35 Eosinophils % 0.0 % 07/20/18 17:35 Basophils % 0.0 % 07/20/18 17:35 Metamyelocytes % 2.0 % 07/20/18 17:35 Myelocytes % 0.5 % 07/20/18 17:35 Promyelocytes % 0.0 % 07/20/18 17:35 Blast Cells % 0.0 % 07/20/18 17:35 Immature Gran # Not Reported 07/20/18 17:35 Absolute Seg Neuts 11.55 10^3/uL (1.70-6.50) H 07/20/18 17:35 Absolute Band Neuts 1.57 10^3/uL (0.00-0.70) H 07/20/18 17:35 Absolute Lymphocytes 0.79 10^3/uL (1.00-3.00) L 07/20/18 17:35 Absolute Monocytes 1.41 10^3/uL (0.30-0.80) H 07/20/18 17:35 Absolute Eosinophils 0.00 10^3/uL (0.03-0.40) L 07/20/18 17:35 Absolute Basophils 0.00 10^3/uL (0.02-0.10) L 07/20/18 17:35 Absolute Metamyelocyte 0.31 10^3/mL (0.00-0.00) H 07/20/18 17:35 Absolute Myelocytes 0.08 10^3/mL (0.00-0.00) H 07/20/18 17:35 Absolute Promyelocytes 0.00 10^3/uL (0.00-0.00) 07/20/18 17:35 Absolute Plasma Cells 0.00 10^3/uL (0.00-0.00) 07/20/18 17:35 Nucleated RBCs 1.0 /100 WBC (0-0) H 07/20/18 17:35 Absolute Blast Cells 0.00 10^3/uL (0.00-0.00) 07/20/18 17:35 Plasma Cells % 0.0 % 07/20/18 17:35 Platelet Estimate ADEQUATE (ADEQ) 07/20/18 17:35 Polychromasia 1+ H 07/20/18 17:35 PT 14.3 SEC (12.0-15.0) 07/20/18 17:35 INR 1.09 (0.83-1.16) 07/20/18 17:35 APTT 33.8 SEC (23.0-38.0) 07/20/18 17:35 VBG Lactic Acid 1.4 mmol/L (0.7-2.1) 07/20/18 17:35 Sodium 136 mEq/L (135-145) 07/20/18 17:35 Potassium 3.9 mEq/L (3.5-5.2) 07/20/18 17:35 Chloride 100 mEq/L (97-110) 07/20/18 17:35 Carbon Dioxide 24 mEq/l (22-31) 07/20/18 17:35 Anion Gap 12 mEq/L (6-14) 07/20/18 17:35 BUN 16 mg/dL (7-23) 12/14/18 17:35 Creatinine 0.8 mg/dL (0.6-1.0) 07/20/18 17:35 Estimated GFR > 60 07/20/18 17:35 Glucose 116 mg/dL (70-100) H 07/20/18 17:35 Calcium 9.5 mg/dL (8.5-10.4) 07/20/18 17:35 Total Bilirubin 0.4 mg/dL (0.1-1.4) 07/20/18 17:35 Urine Color CHRISTINA 07/20/18 20:20 Urine Appearance HAZY 07/20/18 20:20 Urine pH 6.0 (5.0-7.5) 07/20/18 20:20 Ur Specific [place] 1.021 (1.002-1.030) 07/20/18 20:20 Urine Protein NEGATIVE (NEGATIVE) 07/20/18 20:20 Urine Ketones NEGATIVE (NEGATIVE) 07/20/18 20:20 Urine Blood NEGATIVE (NEGATIVE) 07/20/18 20:20 Urine Nitrate NEGATIVE (NEGATIVE) 07/20/18 20:20 Urine Bilirubin NEGATIVE (NEGATIVE) 07/20/18 20:20 Urine Urobilinogen NEGATIVE EU (0.2-1.0) 07/20/18 20:20 Ur Leukocyte Esterase NEGATIVE (NEGATIVE) 07/20/18 20:20 Ur Culture Indicated? NOT INDICATED (NI) 07/20/18 20:20 Urine Glucose NEGATIVE (NEGATIVE) 07/20/18 20:20 Nasal Influenza A PCR Cancelled 07/20/18 18:13 Nasal Influenza B PCR Cancelled 07/20/18 18:13 Visualized and Interpreted Chest x-ray results: Yes Chest X-Ray results: infiltrate (LLL) Assessment & Plan Assessment: Left lower lobe pneumonia (Acute) Tachycardia (Acute) 57 yo F with breast cancer and recent recurrence currently undergoing chemotherapy pw cough/fever and found to have LLL PNA # LLL PNA: in the setting of being on active chemotherapy and immune suppression , started on cefepime for now, cultures pending # sepsis:in the setting of above with tachycardia, tachypnea and elevated wbc on arrival, HD stable, no e/o end organ dysfunction # breast cancer: recently recurred, oncologist is DR. Jorgensen, currently being treated with adriamycin/cytoxin. If hospitalization likely to be prolonged, onc will need to be consulted # asthma: with likely mild exacerbation in setting of above but patient generally moving air reasonably well, continue nebs # anemia: chronic and likely due to chemotherapy, stable, will trend # observation status Patient new to my care. Old records reviewed and summarized as above. Care plan reviewed with ER doctor as above. Further hx obtained from patients present at bedside.
[2018-07-20] MEDS: CEFEPIME HCL 2 GM in NS 100 ML IV SCH (22:47)
[2018-07-20] MEDS: NS 1,000 ML IV SCH (22:47)
[2018-07-21] MEDS: ALBUTEROL 3 ML DEYVIAL IH PRN (05:30)
[2018-07-21] MEDS: IPRATROPIUM/ALBUTEROL 3 ML DEYVIAL IH SCH ×5 (05:37→20:48)
[2018-07-21] MEDS: CEFEPIME HCL 2 GM in NS 100 ML IV SCH ×2 (05:50→14:37)
[2018-07-21 06:37] LABS: PLATELET COUNT 248 10^3/uL (150-400)
[2018-07-21] MEDS: NS 1,000 ML IV SCH ×2 (09:11→21:57)
[2018-07-21] MEDS: MULTIVITAMINS 1 EACH TAB PO SCH (09:33)
[2018-07-21] MEDS: CHOLECALCIFEROL VIT D3 2,000 UNITS TAB/CAP PO SCH (09:33)
[2018-07-21] MEDS: ENOXAPARIN 40 MG/0.4 ML SYR SC SCH (09:34)
[2018-07-21] MEDS: FLUTICASONE HFA 220 MCG MDI IH SCH (09:40)
[2018-07-21] MEDS ORDERED: SODIUM CL NASAL 45 ML BTL EACHNARE PRN (10:21)
[2018-07-21] MEDS: ACETAMINOPHEN 325 MG TAB PO PRN ×2 (10:24→20:37)
--- NOTE | 2018-07-21 12:09 | ASMTCMCOM ---
CM Note CM Note Notes: Pt with a hx of breast ca, admitted for pneumonia. She lives at home with her , PT/OT therapies ordered, CM w/f. DC Plan: TBD Date Signed: 07/21/2018 12:08 PM Electronically Signed By:Emelyn Banks RN
--- NOTE | 2018-07-21 14:12 | HOSPPROG ---
Hospitalist Progress Note Assessment/Plan: 57 yo F with breast cancer, last chemo July 10, due for next round on here with LLL pna. LLL PNA- not neutropenic, and with leukocytosis. I curbsided ID who felt that if patient is not neutropenic, could just treat as normally would for CAP with azithro/rocephin. white count trending down. Sepsis- still meeting sepsis criteria, as she still has a bandemia and mild tachycardia. Continue abx, and fluids. recheck lactate breast cancer- recently recurred, oncologist is DR. Jorgensen, currently being treated with adriamycin/cytoxin. If hospitalization likely to be prolonged, onc will need to be consulted HTN- takes losartan. would hold as she was septic on arrival. resume PRN asthma-Doing well without steroids so far. continue nebs/albuterol for now. anemia- most likely due to chemo. Trended down mildly overnight, but may have been due to hemodilution. If trends down below 7/21 will transfuse. monitor for now. PPX- Lovenox, SCDs fluids- NS Lytes- WNL Nutrition- regular Cor- Full Dispo- inpatient for sepsis, Pna, anemia Subjective: has bad chills this morning. Coughing some, and mildly short of breath, but non productive cough. Objective: Vital Signs Temp Pulse Resp BP Pulse Ox 37.1 C 113 H 16 104/59 L 93 07/21/18 11:51 07/21/18 11:51 07/21/18 11:51 07/21/18 11:51 07/21/18 11:51 Laboratory Results 07/21/18 04:22 07/21/18 04:22 07/20/18 07/21/18 07/22/18 05:59 05:59 05:59 Intake Total 200 Output Total 750 450 Balance -750 -250 PT 14.3 SEC (12.0-15.0) 07/20/18 17:35 INR 1.09 (0.83-1.16) 07/20/18 17:35 - Physical Exam Constitutional: no apparent distress, appears nourished, not in pain Eyes: PERRL, anicteric sclera, EOMI Ears, Nose, Mouth, Throat: moist mucous membranes, hearing normal, ears appear normal, no oral mucosal ulcers Cardiovascular: regular rate and rhythym, no murmur, rub, or gallop Respiratory: no respiratory distress, no rales or rhonchi, clear to auscultation Gastrointestinal: normoactive bowel sounds, soft, non-tender abdomen, no palpable masses Genitourinary: no bladder fullness, no bladder tenderness, no renal bruits Skin: no rashes or abrasions, no fluctuance, no induration Musculoskeletal: full muscle strength, no muscle tenderness, normal joint ROM Neurologic: AAOx3, sensation intact bilaterally Psychiatric: interacting appropriately, not anxious, not encephalopathic, thought process linear Lymph, Heme, Immunologic: no cervical LAD, no supraclavicular LAD ICD10 Worksheet Patient Problems: Problems Problem Status Onset Left lower lobe pneumonia Acute Tachycardia Acute Cervical strain Acute Minor head injury without loss of consciousness Acute Traumatic hematoma of thoracic region Acute
--- NOTE | 2018-07-21 15:41 | PDMN ---
Medical Necessity Medical necessity: MCG: M160 sepsis and other febrile illness: pt with PMH Br Ca. on chemo, pt still with bandemia and mild tachycardia, leukocytosis, also with LLL PNA, status changed to INPT 07/21 for ongoing med nec. further tx and monitoring> 2 MN.
[2018-07-21] MEDS: AZITHROMYCIN IV 500 MG in NS 250 ML IV SCH (18:20)
[2018-07-22] MEDS: ACETAMINOPHEN 325 MG TAB PO PRN ×4 (00:53→23:03)
[2018-07-22] MEDS: IPRATROPIUM/ALBUTEROL 3 ML DEYVIAL IH SCH ×4 (05:16→21:08)
[2018-07-22 05:53] LABS: PLATELET COUNT 226 10^3/uL (150-400)
[2018-07-22] MEDS: CHOLECALCIFEROL VIT D3 2,000 UNITS TAB/CAP PO SCH (09:57)
[2018-07-22] MEDS: MULTIVITAMINS 1 EACH TAB PO SCH (09:57)
[2018-07-22] MEDS: ENOXAPARIN 40 MG/0.4 ML SYR SC SCH (09:57)
[2018-07-22] MEDS: FLUTICASONE HFA 220 MCG MDI IH SCH (11:08)
[2018-07-22] MEDS: AZITHROMYCIN IV 500 MG in NS 250 ML IV SCH (11:41)
--- NOTE | 2018-07-22 12:30 | HOSPPROG ---
Hospitalist Progress Note Assessment/Plan: 57 yo F with breast cancer, last chemo July 10, due for next round on here with LLL pna. Has had progressive anemia during stay. LLL PNA- not neutropenic, and with leukocytosis. I curbsided ID who felt that if patient is not neutropenic, could just treat as normally would for CAP with azithro/rocephin. white count trending down. procalcitonin was elevated on admission. -continue rocephin/azithro -discharge on levaquin PO to complete course anemia- H/H has trended down over her stay, now down to 02/24 and she is symptomatic. I discussed case with bonding machine tender oncologist who feels this is likely due to chemo. Will transfuse 1 unit PRBCs, irradiated and CMV negative. Breast Cancer- stage 2, last chemo 07/10 and she will be due for next cycle on Tuesday 07/24. Discussed case with bonding machine tender oncologist, who felt if possible best to discharge and have her make her appt, but chemo will likely be held. HTN- takes losartan. would hold as she was septic on arrival. resume PRN asthma-Doing well without steroids so far. continue nebs/albuterol for now. PPX- Lovenox, SCDs fluids- NS Lytes- WNL Nutrition- regular Cor- Full Dispo- inpatient for sepsis, Pna, anemia. Likely DC in am, to follow up in Monday with Dr. Jorgensen. Subjective: patient fatigued today, winded with any exertion. no fevers, and chills resolved. Objective: Vital Signs Temp Pulse Resp BP Pulse Ox 37.6 C 102 H 16 119/61 94 07/22/18 11:58 07/22/18 11:58 07/22/18 11:58 07/22/18 11:58 07/22/18 11:58 Laboratory Results 07/22/18 04:40 07/22/18 04:40 07/21/18 07/22/18 07/23/18 05:59 05:59 05:59 Intake Total 440 3423 Output Total 1700 300 Balance -1260 3123 PT 14.3 SEC (12.0-15.0) 07/20/18 17:35 INR 1.09 (0.83-1.16) 07/20/18 17:35 - Physical Exam Constitutional: other (Looks pale, and ill appearing) Eyes: PERRL, anicteric sclera, EOMI Ears, Nose, Mouth, Throat: moist mucous membranes, hearing normal, ears appear normal, no oral mucosal ulcers Cardiovascular: regular rate and rhythym, no murmur, rub, or gallop Respiratory: no respiratory distress, no rales or rhonchi, clear to auscultation Gastrointestinal: normoactive bowel sounds, soft, non-tender abdomen, no palpable masses Genitourinary: no bladder fullness, no bladder tenderness, no renal bruits Skin: no rashes or abrasions, no fluctuance, no induration Musculoskeletal: full muscle strength, no muscle tenderness, normal joint ROM Neurologic: AAOx3, sensation intact bilaterally Psychiatric: interacting appropriately, not anxious, not encephalopathic, thought process linear Lymph, Heme, Immunologic: no cervical LAD, no supraclavicular LAD ICD10 Worksheet Patient Problems: Problems Problem Status Onset Left lower lobe pneumonia Acute Tachycardia Acute Cervical strain Acute Minor head injury without loss of consciousness Acute Traumatic hematoma of thoracic region Acute
--- NOTE | 2018-07-22 15:32 | PDCONSULT ---
Television Tube Inspector Note: Hematology/oncology consultation note Reason for consultation: Pneumonia with a history of breast cancer currently receiving chemotherapy Outpatient oncologist: Dr. Marcia Jorgensen History of present illness: Marija is a very pleasant 57-year-old female with history of left-sided T2 N0 M0 breast cancer currently receiving neoadjuvant chemotherapy most recently with dose dense Taxol who was admitted for sepsis from a respiratory source. 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 She underwent lumpectomy and eventually re-excision. She was on adjuvant tamoxifen thereafter. She then developed a 2nd breast primary in April of 2018 measuring 3.2 cm. Biopsy revealed a ER 25%, NJ negative and high Ki-67 at 40%. HER2 was negative by IHC. She was initiated on chemotherapy with neoadjuvant doxorubicin and cyclophosphamide on May 18, 2018. She completed 4 cycles of doxorubicin and cyclophosphamide. She most recently was started on dose dense paclitaxel with the 1st dose being 07/10/2018 which was given with growth factor support. She states that in late June she develops symptoms of rhinosinusitis. She was given a prescription for Augmentin by her primary care provider. She states that her symptoms initially improved. Then her symptoms about 2 weeks afterward recurred and was started on doxycycline. She had symptoms of fever above 100.4 F. She had symptoms of left-sided pleuritic CP, shortness of breath and cough. When she was admitted to [facility] she had a chest x-ray concerning for possible pneumonia. She has been treated with ceftriaxone and azithromycin. She also has been noted to be anemic and has received a blood transfusion today. Past medical and surgical history: History of DCIS and invasive breast cancer as per above Hypertension Nephrolithiasis COPD Hysterectomy 2003 Social history: She is a nonsmoker. She works in the financial sector. Family history: Maternal grandfather had cancer of unknown type. Otherwise no other cancers in the family. Medications: Reviewed in [email or web address]. Allergies: Keflex, oxycodone Review of systems: 12 point review systems was 10 was otherwise negative unless stated in HPI Physical examination: Temp Pulse Resp BP Pulse Ox 37.2 C 86 14 106/62 93 07/22/18 15:17 07/22/18 15:17 07/22/18 15:17 07/22/18 15:17 07/22/18 15:17 O2 (L/minute) 1 General: Pleasant-appearing female appears in no acute distress HEENT: Oropharynx is clear extraocular movements are intact pupils equal round reactive to light Cardiovascular: Regular rate and rhythm no murmurs gallops rubs Pulmonary: Bibasilar crackles noted left greater than right, appears slightly distant Abdomen: Soft nontender nondistended bowel sounds Extremities: Right-sided [id number] is accessed Skin: No skin lesions Psych: Appropriate affect Neuro: No extremities Lymph: No lymphadenopathy WBC 10.60 10^3/uL (3.80-9.50) H 07/22/18 04:40 RBC 2.26 10^6/uL (4.18-5.33) L 07/22/18 04:40 Hgb 7.0 g/dL (12.6-16.3) L 07/22/18 04:40 Hct 21.4 % (38.0-47.0) L 07/22/18 04:40 MCV 94.7 fL (81.5-99.8) 07/22/18 04:40 MCH 31.0 pg (27.9-34.1) 07/22/18 04:40 MCHC 32.7 g/dL (32.4-36.7) 07/22/18 04:40 RDW 17.9 % (11.5-15.2) H 07/22/18 04:40 Plt Count 226 10^3/uL (150-400) 07/22/18 04:40 MPV 10.0 fL (8.7-11.7) 07/22/18 04:40 Neut % (Auto) Not Reported 07/22/18 04:40 Lymph % (Auto) Not Reported 07/22/18 04:40 [place] % (Auto) Not Reported 07/22/18 04:40 Eos % (Auto) Not Reported 07/22/18 04:40 Baso % (Auto) Not Reported 07/22/18 04:40 Nucleat RBC Rel Count Not Reported 07/22/18 04:40 Absolute Neuts (auto) Not Reported 07/22/18 04:40 Absolute Lymphs (auto) Not Reported 07/22/18 04:40 Absolute Monos (auto) Not Reported 07/22/18 04:40 Absolute Eos (auto) Not Reported 07/22/18 04:40 Absolute Basos (auto) Not Reported 07/22/18 04:40 Absolute Nucleated RBC Not Reported 07/22/18 04:40 Immature Gran % Not Reported 07/22/18 04:40 Seg Neutrophils % 81.0 % 07/22/18 04:40 Band Neutrophils % 2.0 % 07/22/18 04:40 Lymphocytes % 9.0 % 07/22/18 04:40 Monocytes % 6.0 % 07/22/18 04:40 Eosinophils % 0.0 % 07/22/18 04:40 Basophils % 2.0 % 07/22/18 04:40 Metamyelocytes % 0.0 % 07/22/18 04:40 Myelocytes % 0.0 % 07/22/18 04:40 Promyelocytes % 0.0 % 07/22/18 04:40 Blast Cells % 0.0 % 07/22/18 04:40 Immature Gran # Not Reported 07/22/18 04:40 Absolute Seg Neuts 8.59 10^3/uL (1.70-6.50) H 07/22/18 04:40 Absolute Band Neuts 0.21 10^3/uL (0.00-0.70) 07/22/18 04:40 Absolute Lymphocytes 0.95 10^3/uL (1.00-3.00) L 07/22/18 04:40 Absolute Monocytes 0.64 10^3/uL (0.30-0.80) 07/22/18 04:40 Absolute Eosinophils 0.00 10^3/uL (0.03-0.40) L 07/22/18 04:40 Absolute Basophils 0.21 10^3/uL (0.02-0.10) H 07/22/18 04:40 Absolute Metamyelocyte 0.00 10^3/mL (0.00-0.00) 07/22/18 04:40 Absolute Myelocytes 0.00 10^3/mL (0.00-0.00) 07/22/18 04:40 Absolute Promyelocytes 0.00 10^3/uL (0.00-0.00) 07/22/18 04:40 Absolute Plasma Cells 0.00 10^3/uL (0.00-0.00) 07/22/18 04:40 Nucleated RBCs 0 /100 WBC (0-0) 07/22/18 04:40 Absolute Blast Cells 0.00 10^3/uL (0.00-0.00) 07/22/18 04:40 Plasma Cells % 0.0 % 07/22/18 04:40 Toxic Granulation PRESENT H 07/21/18 04:22 Platelet Estimate ADEQUATE (ADEQ) 07/22/18 04:40 Polychromasia 1+ H 07/22/18 04:40 Hypochromasia 1+ H 07/22/18 04:40 Microcytic Cells 1+ H 07/21/18 04:22 Oval Macrocytes 1+ H 07/22/18 04:40 PT 14.3 SEC (12.0-15.0) 07/20/18 17:35 INR 1.09 (0.83-1.16) 07/20/18 17:35 APTT 33.8 SEC (23.0-38.0) 07/20/18 17:35 VBG Lactic Acid 1.3 mmol/L (0.7-2.1) 07/21/18 14:25 Sodium 141 mEq/L (135-145) 07/22/18 04:40 Potassium 3.6 mEq/L (3.5-5.2) 07/22/18 04:40 Chloride 114 mEq/L (97-110) H 07/22/18 04:40 Carbon Dioxide 20 mEq/l (22-31) L 07/22/18 04:40 Anion Gap 7 mEq/L (6-14) 07/22/18 04:40 BUN 8 mg/dL (7-23) 07/22/18 04:40 Creatinine 0.7 mg/dL (0.6-1.0) 07/22/18 04:40 Estimated GFR > 60 07/22/18 04:40 Glucose 88 mg/dL (70-100) 07/22/18 04:40 Calcium 7.8 mg/dL (8.5-10.4) L 07/22/18 04:40 Total Bilirubin 0.1 mg/dL (0.1-1.4) 07/22/18 04:40 AST 26 IU/L (14-46) 07/22/18 04:40 ALT 37 IU/L (9-52) 07/22/18 04:40 Alkaline Phosphatase 51 IU/L (38-126) 07/22/18 04:40 Total Protein 4.8 g/dL (6.3-8.2) L 07/22/18 04:40 Albumin 2.5 g/dL (3.5-5.0) L 07/22/18 04:40 Procalcitonin 0.22 ng/mL (0.02-0.10) H 07/21/18 14:25 Urine Color CHRISTINA 07/20/18 20:20 Urine Appearance HAZY 07/20/18 20:20 Urine pH 6.0 (5.0-7.5) 07/20/18 20:20 Ur Specific [place] 1.021 (1.002-1.030) 07/20/18 20:20 Urine Protein NEGATIVE (NEGATIVE) 07/20/18 20:20 Urine Ketones NEGATIVE (NEGATIVE) 07/20/18 20:20 Urine Blood NEGATIVE (NEGATIVE) 07/20/18 20:20 Urine Nitrate NEGATIVE (NEGATIVE) 07/20/18 20:20 Urine Bilirubin NEGATIVE (NEGATIVE) 07/20/18 20:20 Urine Urobilinogen NEGATIVE EU (0.2-1.0) 07/20/18 20:20 Ur Leukocyte Esterase NEGATIVE (NEGATIVE) 07/20/18 20:20 Ur Culture Indicated? NOT INDICATED (NI) 07/20/18 20:20 Urine Glucose NEGATIVE (NEGATIVE) 07/20/18 20:20 Nasal Influenza A PCR Cancelled 07/20/18 18:13 Nasal Influenza B PCR Cancelled 07/20/18 18:13 Patient ABO/Rh A POSITIVE 07/22/18 11:33 Antibody Screen NEGATIVE 07/22/18 11:33 Crossmatch IS Only See Detail 07/22/18 11:33 Assessment and plan: Marija is a very pleasant 57-year-old female with history of left-sided breast cancer currently receiving neoadjuvant chemotherapy who was admitted for fever and lobar pneumonia. 1. Pneumonia, bacterial source: She currently is receiving ceftriaxone and azithromycin. She is tachycardic but remains afebrile. On examination concerned that she has an underlying lobar pneumonia. She is on adequate coverage covered being MRSA. Her counts appropriate and she did receive Neulasta with the last cycle of chemotherapy. I would repeat a CXR tomorrow in light of ongoing dyspnea. 2. Left sided breast cancer: s/p 4 cycles of AC, now receiving ddTaxol. Will follow up with Dr. Jorgensen when discharged. 3. Chemotherapy associated anemia: Agree with transfusion 1 u of pRBC today. All questions were answered. She voices understanding of the plan
[2018-07-22] MEDS ORDERED: NS 1,000 ML IV SCH (22:15)
[2018-07-22] MEDS: NS 500 ML IV ONE ×2 (22:23→22:49)
[2018-07-22] MEDS ORDERED: OXYMETAZOLINE 30 ML NASAL SPRAY EACHNARE SCH (22:30)
[2018-07-22] MEDS ORDERED: FUROSEMIDE 20 MG TAB PO ONE (22:46)
--- NOTE | 2018-07-22 22:56 | HOSPPROG ---
Hospitalist Progress Note Assessment/Plan: Hospitalist night float note Notified by Dr. Armendariz at sign-out that she had been ordering multiple studies for concerns of hypotension, tachycardia, dyspnea and epistaxis. Patient with a history of breast cancer undergoing chemotherapy admitted with pneumonia. Patient was placed on telemetry. She is noted to have a heart rate in the 120s during vitals checks. She did receive a transfusion earlier in the day. H&H is improved from this morning. Hemoglobin greater than 8 does not currently require transfusion. Chest x-ray reveals bilateral infiltrates and also left costophrenic angle is quite diminished and concerning for effusion consolidation. Compared x-rays from 07/20/18. Patient has had low normal blood pressures but improved throughout the day following her transfusion. Will give a very low dose of Lasix as patient has also noted increasing lower extremity edema as well. She notes that she has had increasing left lateral pleuritic chest pain worsening over the course of the day as well. Plan - 10 mg of Lasix. Monitor blood pressures closely. Afrin twice daily p.r.n. For epistaxis and nasal congestion. Patient will be monitored on telemetry as she remains in heart rate of mid 110s-120s. Hold off on additional IV fluids at this time. Patient is slowly improving her oral intake. Plan discussed with RN. Objective: Vital Signs Temp Pulse Resp BP Pulse Ox 37.2 C 97 18 114/70 91 L 07/22/18 19:26 07/22/18 21:09 07/22/18 21:09 07/22/18 19:26 07/22/18 21:09 Laboratory Results 07/22/18 22:17 07/22/18 04:40 07/21/18 07/22/18 07/23/18 05:59 05:59 05:59 Intake Total 440 4968 Output Total 1700 1700 Balance -1260 3268 PT 14.3 SEC (12.0-15.0) 07/20/18 17:35 INR 1.09 (0.83-1.16) 07/20/18 17:35 ICD10 Worksheet Patient Problems: Problems Problem Status Onset Left lower lobe pneumonia Acute Tachycardia Acute Cervical strain Acute Minor head injury without loss of consciousness Acute Traumatic hematoma of thoracic region Acute
[2018-07-23] MEDS: HYDROCODONE/APAP 5/325 TAB PO PRN ×2 (02:22→22:29)
--- NOTE | 2018-07-23 05:27 | CPEKG ---
Test Reason : OPEN Blood Pressure : / mmHG Vent. Rate : 110 BPM Atrial Rate : 109 BPM P-R Int : 144 ms QRS Dur : 085 ms QT Int : 342 ms P-R-T Axes : 069 015 045 degrees QTc Int : 463 ms Sinus tachycardia Probable left atrial enlargement Low voltage, precordial leads Confirmed by Joseluis Vasquez ([id number]) on 07/23/2018 5:26:41 AM Referred By: Confirmed By:Joseluis Vasquez
[2018-07-23] MEDS: IPRATROPIUM/ALBUTEROL 3 ML DEYVIAL IH SCH ×4 (05:33→21:42)
[2018-07-23 05:34] LABS: PLATELET COUNT 210 10^3/uL (150-400)
[2018-07-23] MEDS: CHOLECALCIFEROL VIT D3 2,000 UNITS TAB/CAP PO SCH (07:56)
[2018-07-23] MEDS: MULTIVITAMINS 1 EACH TAB PO SCH (07:56)
[2018-07-23] MEDS: AZITHROMYCIN IV 500 MG in NS 250 ML IV SCH (07:56)
[2018-07-23] MEDS: OXYMETAZOLINE 30 ML NASAL SPRAY EACHNARE PRN (07:58)
[2018-07-23] MEDS: ENOXAPARIN 40 MG/0.4 ML SYR SC SCH (08:00)
[2018-07-23] MEDS: ACETAMINOPHEN 325 MG TAB PO PRN ×2 (08:30→16:11)
[2018-07-23] MEDS: FLUTICASONE HFA 220 MCG MDI IH SCH (11:12)
--- NOTE | 2018-07-23 11:59 | SOAPPROG ---
SOAP Progress Note Assessment/Plan: Assessment: Marija is a 57 yo female with hx of breast cancer admitted for PNA. 1. Bacterial pneumonia with hypoxic respiratory failure: Meets SIRS criteria. Still has persistent tachycardia and oxygen requirement. I reviewed the CXR that shows worsening of the left lower lobe infiltrate. I've recommended obtaining a CT of the chest today. Continue antibiotics for now. Would consider adding MRSA coverage. 2. Breast cancer: Followed by Dr. Jorgensen. S/p dd Taxol with neulasta. 3. Pleurisy: this is secondary to #1. 4. Leucocytosis: Secondary to #1. 07/23/18 11:58 Subjective: No acute events overnight. Respiratory status is stable from yesterday but improved from admission. Still requiring oxygen. She still has intermittent left pleuritic pain. Objective: Vital Signs Temp Pulse Resp BP Pulse Ox 36.6 C 98 18 114/56 L 94 07/23/18 11:37 07/23/18 11:37 07/23/18 11:37 07/23/18 11:37 07/23/18 11:37 Laboratory Results 07/23/18 04:20 07/23/18 04:20 07/22/18 07/23/18 07/24/18 05:59 05:59 05:59 Intake Total 440 5668 400 Output Total 1700 3000 1350 Balance -1260 2668 -950 PT 14.3 SEC (12.0-15.0) 07/20/18 17:35 INR 1.09 (0.83-1.16) 07/20/18 17:35 General: pleasant, NAD HEENT: NC in place, OP clear CV: tachycardic Pulm: Bibasilar crackles L>R Abd: S, NT ND, BS+ Ext: Tr bl LE edema Skin: No skin lesions Psych: Normal affect ICD10 Worksheet Patient Problems: Problems Problem Status Onset Left lower lobe pneumonia Acute Tachycardia Acute Cervical strain Acute Minor head injury without loss of consciousness Acute Traumatic hematoma of thoracic region Acute
--- NOTE | 2018-07-23 12:33 | HOSPPROG ---
Hospitalist Progress Note Assessment/Plan: 57 yo F with breast cancer, last chemo July 10, due for next round on here with LLL pna. Has had progressive anemia during stay. LLL PNA- not neutropenic, and with leukocytosis. continue rocephin/azithro persistent tachycardia noted check CT PE to eval for PE, effusion anemia- H/H has trended down over her stay, now down to 02/24 and she is symptomatic. I discussed case with specifications checker oncologist who feels this is likely due to chemo. Will transfuse 1 unit PRBCs, irradiated and CMV negative. Breast Cancer- stage 2, last chemo 07/10 and she will be due for next cycle on Tuesday 07/24. Discussed case with specifications checker oncologist, who felt if possible best to discharge and have her make her appt, but chemo will likely be held. HTN- takes losartan. would hold as she was septic on arrival. resume PRN asthma-Doing well without steroids so far. continue nebs/albuterol for now. PPX- Lovenox, SCDs fluids- NS Lytes- WNL Nutrition- regular Cor- Full Dispo- inpatient for sepsis, Pna, anemia. Likely DC in am, to follow up in Monday with Dr. Jorgensen. Subjective: case d/w dr ferrara. cxr w more dense LLL infiltrate. (interp by me ) Objective: Vital Signs Temp Pulse Resp BP Pulse Ox 36.6 C 98 18 114/56 L 94 07/23/18 11:37 07/23/18 11:37 07/23/18 11:37 07/23/18 11:37 07/23/18 11:37 Laboratory Results 07/23/18 04:20 07/23/18 04:20 07/22/18 07/23/18 07/24/18 05:59 05:59 05:59 Intake Total 440 5668 400 Output Total 1700 3000 1350 Balance -1260 2668 -950 PT 14.3 SEC (12.0-15.0) 07/20/18 17:35 INR 1.09 (0.83-1.16) 07/20/18 17:35 - Physical Exam Constitutional: no apparent distress, appears nourished Eyes: PERRL, anicteric sclera Ears, Nose, Mouth, Throat: moist mucous membranes, hearing normal Cardiovascular: regular rate and rhythym, no murmur, rub, or gallop Respiratory: no respiratory distress, other (crackles/rhonchi at L base. good air movement. no wheeze) Gastrointestinal: normoactive bowel sounds, soft, non-tender abdomen Genitourinary: no bladder fullness, No bolden in urethra Skin: warm, normal color Musculoskeletal: full muscle strength, no muscle tenderness Neurologic: AAOx3 Psychiatric: interacting appropriately, not anxious Lymph, Heme, Immunologic: no cervical LAD ICD10 Worksheet Patient Problems: Problems Problem Status Onset Left lower lobe pneumonia Acute Tachycardia Acute Cervical strain Acute Minor head injury without loss of consciousness Acute Traumatic hematoma of thoracic region Acute
--- NOTE | 2018-07-23 14:23 | ASMTCMCOM ---
CM Note CM Note Notes: Therapies have cleared pt to d/c home without any needs. CM available for changes. Plan: Independent w/ supportive Date Signed: 07/23/2018 11:06 AM Electronically Signed By:CHENCHO Rock
[2018-07-24] MEDS: HYDROCODONE/APAP 5/325 TAB PO PRN (04:36)
[2018-07-24] MEDS: IPRATROPIUM/ALBUTEROL 3 ML DEYVIAL IH SCH ×4 (05:28→21:36)
[2018-07-24] MEDS: MULTIVITAMINS 1 EACH TAB PO SCH (08:25)
[2018-07-24] MEDS: CHOLECALCIFEROL VIT D3 2,000 UNITS TAB/CAP PO SCH (08:25)
[2018-07-24] MEDS: ENOXAPARIN 40 MG/0.4 ML SYR SC SCH (08:26)
[2018-07-24] MEDS: AZITHROMYCIN IV 500 MG in NS 250 ML IV SCH (08:51)
[2018-07-24] MEDS: ACETAMINOPHEN 325 MG TAB PO PRN ×2 (10:49→19:34)
--- NOTE | 2018-07-24 10:54 | HOSPPROG ---
Hospitalist Progress Note Assessment/Plan: 57 yo F with breast cancer, last chemo July 10, due for next round on here with LLL pna. Has had progressive anemia during stay. LLL PNA- not neutropenic, and with leukocytosis. 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 PE: PE w sig airspace disease which likely explains current presentation no utility in ddimer hold off on repeat CT w contrast anemia- H/H has trended down over her stay, now down to 02/24 and she is symptomatic. I discussed case with instructional systems specialist oncologist who feels this is likely due to chemo. Will transfuse 1 unit PRBCs, irradiated and CMV negative. Breast Cancer- stage 2, last chemo 07/10 and she will be due for next cycle on Tuesday 07/24. Discussed case with instructional systems specialist oncologist, who felt if possible best to discharge and have her make her appt, but chemo will likely be held. HTN- takes losartan. would hold as she was septic on arrival. resume PRN asthma-Doing well without steroids so far. continue nebs/albuterol for now. PPX- Lovenox, SCDs fluids- NS Lytes- WNL Nutrition- regular Cor- Full Dispo- inpatient for sepsis, Pna, anemia. Likely DC in am, to follow up in Monday with Dr. Jorgensen. Subjective: chest images reviewed/interp by me. multifocal pneumonia, no e/o breast CA. non con study so PE not evaluated Objective: Vital Signs Temp Pulse Resp BP Pulse Ox 36.8 C 82 20 106/63 94 07/24/18 08:26 07/24/18 08:26 07/24/18 08:26 07/24/18 08:26 07/24/18 08:26 Laboratory Results 07/23/18 04:20 07/23/18 04:20 07/23/18 07/24/18 07/25/18 05:59 05:59 05:59 Intake Total 5668 1775 Output Total 3000 3250 1000 Balance 2668 -1475 -1000 PT 14.3 SEC (12.0-15.0) 07/20/18 17:35 INR 1.09 (0.83-1.16) 07/20/18 17:35 - Physical Exam Constitutional: no apparent distress Eyes: PERRL, anicteric sclera Ears, Nose, Mouth, Throat: moist mucous membranes, hearing normal Cardiovascular: regular rate and rhythym, no murmur, rub, or gallop Respiratory: no respiratory distress, other (diffuse crackles L>R) Gastrointestinal: normoactive bowel sounds, soft, non-tender abdomen Genitourinary: no bladder fullness, No bolden in urethra Skin: warm, normal color Musculoskeletal: full muscle strength, no muscle tenderness Neurologic: AAOx3, sensation intact bilaterally Psychiatric: interacting appropriately ICD10 Worksheet Patient Problems: Problems Problem Status Onset Left lower lobe pneumonia Acute Tachycardia Acute Cervical strain Acute Minor head injury without loss of consciousness Acute Traumatic hematoma of thoracic region Acute
[2018-07-24] MEDS: FLUTICASONE HFA 220 MCG MDI IH SCH (10:55)
--- NOTE | 2018-07-24 15:19 | SOAPPROG ---
SOAP Progress Note Assessment/Plan: Assessment: Marija is a 57 yo female with hx of breast cancer admitted for hypoxic respiratory failure. 1. Pneumonitis with hypoxic respiratory failure: I reviewed her recent CT imaging that demonstrates bilateral infiltrates at the bases of both lungs. She did have a T-max up to 382. The initial suspicion was this was a underlying community-acquired pneumonia. I reviewed with her the history again today where she initially had symptoms of rhinosinusitis prior to initiation of Taxol. She received antibiotics and that slightly improved. Her upper respiratory symptoms then slowly worsened and she developed significant dyspnea on exertion. I wonder how much of this is infectious versus an underlying drug related pneumonitis which can occur with taxanes. We will request Pulmonary alongside infectious diseases to weigh in on her case. 2. Breast cancer: Followed by Dr. Jorgensen. S/p dd Taxol with neulasta. 3. Pleurisy: this is secondary to #1. 4. Leucocytosis: This could be from underlying infection versus previous Neulasta exposure. 07/24/18 15:16 Subjective: No acute events overnight. She states her breathing is stable. She still is requiring oxygen. No chest pain. Objective: Vital Signs Temp Pulse Resp BP Pulse Ox 36.7 C 92 16 101/55 L 94 07/24/18 11:58 07/24/18 11:58 07/24/18 11:58 07/24/18 11:58 07/24/18 11:58 Laboratory Results 07/23/18 04:20 07/23/18 04:20 07/23/18 07/24/18 07/25/18 05:59 05:59 05:59 Intake Total 5668 1775 Output Total 3000 3250 1450 Balance 2668 -1475 -1450 PT 14.3 SEC (12.0-15.0) 07/20/18 17:35 INR 1.09 (0.83-1.16) 07/20/18 17:35 General: Pleasant-appearing female in no acute distress HEENT: Nasal cannula in place oropharynx is clear extraocular movements are intact Cardiovascular: Regular rate and rhythm no murmurs gallops or rubs Pulmonary: Bibasilar crackles GI: Soft nontender nondistended bowel sounds are present Extremities: No cyanosis clubbing or edema Psych: Appropriate affect Neuro: Moving all extremities ICD10 Worksheet Patient Problems: Problems Problem Status Onset Left lower lobe pneumonia Acute Tachycardia Acute Cervical strain Acute Minor head injury without loss of consciousness Acute Traumatic hematoma of thoracic region Acute
--- NOTE | 2018-07-24 18:24 | GCON ---
CHEST CONSULTATION REFERRING PHYSICIAN: Jarrod Garcia MD REASON FOR CONSULTATION: Bilateral pulmonary infiltrates. I was asked to see the patient in pulmonary consultation by Dr. Jay Garcia. HISTORY OF PRESENT ILLNESS: The patient is an extremely pleasant 57-year-old white female with a pas t medical history, including breast cancer with a recent recurrence. She has been undergoing chemoth erapy. She was admitted on 07/20/2018, with complaints of worsening breathlessness. This is associa sarah with a cough and fever. Her cough was mostly nonproductive. There was no hemoptysis. She was s tarted on outpatient antibiotics without any improvement. In discussion with the patient, she states that she still is breathless with any form of exertion. She is on supplemental oxygen. She denies any chest pain, pleuritic-type chest pain or angina equivalent. There is no nausea, vomiting, or tori rrhea. She has received 4 cycles of AC and was on DD Taxol. REVIEW OF SYSTEMS: Ten-point review of systems was performed and negative, except for what is listed in HPI. ALLERGIES: Iodine, Darvocet, Percocet, Keflex. MEDICATIONS: At home include cholecalciferol, albuterol, fluticasone, losartan/hydrochlorothiazide, and albuterol. PAST MEDICAL HISTORY: Again significant for asthma, breast cancer, and hypertension. FAMILY HISTORY: Noncontributory. SOCIAL HISTORY: No history of tobacco use. No history of alcohol use. She is , has excellen t family support. PHYSICAL EXAM: VITAL SIGNS: Blood pressure 101/55, pulse 92, respirations 16, temperature 36.7, oxy gen saturation 94% on 2 L. GENERAL: She is a mildly overweight but very pleasant 57-year-old white female who is resting comfortably on supplemental oxygen. HEENT: Eyes are PERRL, EOMI. Throat show s no erythema or tonsillar hypertrophy. NECK: Supple. There is no cervical adenopathy. HEART: Re gular rate and rhythm, with bibasilar crackles. There is no wheeze. ABDOMEN: Soft, nontender. [place] el sounds are present. EXTREMITIES: No clubbing, cyanosis, or edema. LABORATORIES: White count is 11, hemoglobin 7.9, hematocrit 23. Platelet count is 210. Sodium 139, potassium 3.8, chloride 107, CO2 22, BUN 10, creatinine 0.6. Glucose is 109. CT scan of the chest reveals bilateral lower lobe consolidation and small pleural effusions. There is also patchy consoli dation in the right middle lobe. IMPRESSION: 1. Bilateral lower lobe and right middle lobe pneumonia and possible pneumonitis, etiology which is unclear. Query if this is a bacterial pneumonia, must also take consideration possible pneumonitis s econdary to chemotherapy. 2. History of asthma. 3. Hypertension. RECOMMENDATIONS: 1. Agree with current antibiotic coverage. 2. Will perform fiberoptic bronchoscopy tomorrow. Have discussed the case with patient, as well as risks and benefits of this. 3. If cultures come back negative, would consider oral steroids. /[id number]/MODL
[2018-07-24] MEDS: valACYclovir 500 MG TAB PO SCH (20:35)
[2018-07-24 21:40] LABS: PLATELET COUNT 249 10^3/uL (150-400)
[2018-07-25] MEDS: ACETAMINOPHEN 325 MG TAB PO PRN ×2 (04:45→19:33)
[2018-07-25 05:03] LABS: PLATELET COUNT 243 10^3/uL (150-400)
[2018-07-25] MEDS: IPRATROPIUM/ALBUTEROL 3 ML DEYVIAL IH SCH ×3 (06:05→18:22)
--- NOTE | 2018-07-25 06:06 | GCON ---
INFECTIOUS DISEASE CONSULT REFERRING PHYSICIAN: Ángel Correia MD REASON FOR CONSULTATION: Unresolving pneumonia. HISTORY OF PRESENT ILLNESS: A 57-year-old woman with a history of left-sided T2 N0 M0 breast cancer whose problems date back to 07/05/2018, when she developed sinus pressure and rhinorrhea and was prescribed Augmentin. She symptomatically improved during the treatment of her Augmentin therapy. She received a dose of Taxol on July 10. She had trouble tolerating the infusion, requiring additional Benadryl. Following this infusion, patient had persistent fatigue that was longer than expected as compared to her other procedures. Subsequently developed increasing shortness of breath and dry cough. Her antibiotics completed July 14 and on July 18, she had a fever to 101. Patient was started on doxycycline for possible pneumonia. She continued to have congestion, cough, and shortness of breath and difficulty speaking due to shortness of breath and developed a temperature to 103. It was recommended that she be admitted at that time on 07/20/2018. On admission, the patient was noted to have a patchy retrocardiac left lower lobe pneumonia, possible early pneumonia and was started on cefepime and transitioned to ceftriaxone and azithromycin on 07/21/2018. Since admission, patient reports improvement in trajectory of fevers and less chills as compared to when she was an outpatient, but she relates some of this to her blood transfusion, which has improved her dyspnea on exertion. She has an overall low appetite throughout the entire illness and has lost 20 pounds since mid April. ID and Pulmonary are asked to consult due to unresolving pneumonia and persistent shortness of breath and hypoxia since admission. A noncontrasted CT was performed yesterday which showed bilateral interstitial infiltrates in the bilateral lower lobes and right middle lobe. The patient's main complaint is still dyspnea with talking and dry cough. REVIEW OF EXPOSURE HISTORY: Shows the patient is a [place]. Never lived outside the state [facility], lived in [facility] , and now [place]. 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 This she has 4 grown children and is not exposed to small children. She has no pets. No international travel since 2005 to [place]. Last travel was 2016 to [place]. She has no exposure to small mammals. She has not recently cleaned out any basements or garages and does not utilize hot tubs or steam rooms. PAST MEDICAL HISTORY: Breast cancer as per HPI. Ovarian cyst, status post laparotomy on 05/01/2018 for left ovarian mass found to be 9 cm. She had a bilateral oophorectomy and lysis of adhesions, nephrolithiasis, asthma, hysterectomy in 2004, hypertension. Vesicular lip ulcers SOCIAL HISTORY: Nonsmoker. Career as above. She is . FAMILY HISTORY: No family history of breast cancer. She had pancreatic and prostate cancer in the family, autoimmune liver disease in her father. MEDICATIONS: Cefepime from 07/20 to 07/21 and ceftriaxone since the . She is on Lovenox 40 subcu daily and a variety of other p.r.n. medicines. ALLERGIES: Keflex causes nausea. She has a remote history of allergy to IVP contrast, nausea to Percocet and Darvocet. REVIEW OF SYSTEMS: A complete 10-point review of systems was performed and is negative except as mentioned in the HPI. PHYSICAL EXAM: VITAL SIGNS: Blood pressure 133/77, Heart rate 106 to 79, respiratory rate 16 to 32, saturation 92% on room air, 96% on 2 L. T 38.6 at the time of my exam. GENERAL: This is a dyspneic appearing woman sitting up in bed, but still able to communicate fully. HEENT: The patient has crusted ulcerations on 3 spots on her lips. No intraoral lesions. NECK: Was supple. CARDIOVASCULAR: Tachycardia. Faint systolic murmur. CHEST: She had bibasilar Velcro crackles about 1/3 up bilaterally. ABDOMEN: Was soft, nontender. Bowel sounds are present. EXTREMITIES: No clubbing, cyanosis, or edema. Skin: She had overall pallor. No rashes. NEUROLOGIC: She was alert and oriented x4. Moving all 4 extremities equally. LABORATORY: White count on admission 15.7, today 11, hematocrit 23, platelets of 210. She does not have eosinophilia. Creatinine is 0.6. Total bilirubin 0.2, AST 31, ALT 48, alkaline phosphatase 54, albumin 2.6. Procalcitonin 0.22. Blood cultures from 07/20/2018, are no growth to date and respiratory PCR was negative 07/20/2018. IMAGING: As per HPI. ASSESSMENT AND PLAN: This is a 57-year-old woman who has breast cancer on Taxol , who developed fever and a dry cough as well as multilobar interstitial infiltrates on chest CT. Minimal change in symptoms on typical coverage for community-acquired pneumonia. Further respiratory PCR negative for viral etiology. Most likely, etiology of this process is interstitial pneumonitis from the Taxol chemotherapy. Also could consider false-negative for the respiratory PCR and could also consider pneumocystis, although with current immunologic status, this seems exceedingly unlikely. 1. Would say obtain a DFA for pneumocystis tomorrow. 2. Consider repeating respiratory PCR for viral etiologies. 3. If infectious workup is negative, would defer to Oncology and Pulmonology for management of interstitial pneumonitis from Taxol. 4. 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 Would administer Valtrex. 5. Exposure history does not indicate concern for zoonotic infections or other rare infections. Thank you for this consultation. Time was 80 minutes, greater than 50% of time spent with education, counseling of the patient regarding workup and planned therapy for unresolving pneumonia and likely discussion of likely etiology which includes noninfectious. This was explained to the patient and her who is at bedside. /[id number]/MODL MTDD
[2018-07-25] MEDS: AZITHROMYCIN IV 500 MG in NS 250 ML IV SCH (07:14)
[2018-07-25] MEDS ORDERED: LIDOCAINE 1% 300 MG/30 ML SDV ONE (08:03)
[2018-07-25] MEDS ORDERED: EPINEPHrine 1 MG/ML INJ ONE (08:03)
[2018-07-25] MEDS: MULTIVITAMINS 1 EACH TAB PO SCH (09:17)
[2018-07-25] MEDS: CHOLECALCIFEROL VIT D3 2,000 UNITS TAB/CAP PO SCH (09:17)
[2018-07-25] MEDS: valACYclovir 500 MG TAB PO SCH ×2 (09:17→20:39)
[2018-07-25] MEDS: ENOXAPARIN 40 MG/0.4 ML SYR SC SCH (09:18)
[2018-07-25] MEDS: FLUTICASONE HFA 220 MCG MDI IH SCH (09:59)
--- NOTE | 2018-07-25 10:52 | HOSPPROG ---
Hospitalist Progress Note Assessment/Plan: 57 yo F with breast cancer, last chemo July 10, due for next round on here with LLL pna. Has had progressive anemia during stay. LLL PNA- not neutropenic, and with leukocytosis. continue rocephin/azithro persistent tachycardia noted CT showed multifocal pneumonia, no sig effusion this doesnt really change consultant there is concern that this is a drug reaction to taxol and not infection bronch today ? PE: PE w sig airspace disease which likely explains current presentation no utility in ddimer hold off on repeat CT w contrast anemia- H/H has trended down over her stay, now down to 02/24 and she is symptomatic. I discussed case with production roustabout oncologist who feels this is likely due to chemo. Will transfuse 1 unit PRBCs, irradiated and CMV negative. Breast Cancer- stage 2, last chemo 07/10 and she will be due for next cycle on Tuesday 07/24. Discussed case with production roustabout oncologist, who felt if possible best to discharge and have her make her appt, but chemo will likely be held. HTN- takes losartan. would hold as she was septic on arrival. resume PRN asthma-Doing well without steroids so far. continue nebs/albuterol for now. PPX- Lovenox, SCDs fluids- NS Lytes- WNL Nutrition- regular Cor- Full Dispo- inpatient for sepsis, Pna, anemia. Likely DC in am, to follow up in Monday with Dr. Jorgensen. Subjective: case d/w dr null. dry cough. some blood in stool, no melena Objective: Vital Signs Temp Pulse Resp BP Pulse Ox 36.4 C 95 20 106/68 93 07/25/18 07:06 07/25/18 07:06 07/25/18 07:06 07/25/18 07:06 07/25/18 07:06 Laboratory Results 07/25/18 04:52 07/25/18 04:52 07/24/18 07/25/18 07/26/18 05:59 05:59 05:59 Intake Total 1775 800 Output Total 3250 3550 Balance -1475 -2750 PT 14.3 SEC (12.0-15.0) 07/20/18 17:35 INR 1.09 (0.83-1.16) 07/20/18 17:35 - Physical Exam Constitutional: no apparent distress, appears nourished Eyes: PERRL, anicteric sclera Ears, Nose, Mouth, Throat: moist mucous membranes, hearing normal Cardiovascular: regular rate and rhythym, no murmur, rub, or gallop Respiratory: other (diffuse crackles, cough w deep inspiration) Gastrointestinal: normoactive bowel sounds, soft, non-tender abdomen Genitourinary: no bladder fullness, No bolden in urethra Skin: warm, normal color Musculoskeletal: full muscle strength, no muscle tenderness Neurologic: AAOx3, sensation intact bilaterally ICD10 Worksheet Patient Problems: Problems Problem Status Onset Left lower lobe pneumonia Acute Tachycardia Acute Cervical strain Acute Minor head injury without loss of consciousness Acute Traumatic hematoma of thoracic region Acute
[2018-07-25] MEDS: NS 1,000 ML IV SCH ×2 (11:04→23:41)
--- NOTE | 2018-07-25 11:17 | PCMIDPN ---
Assessment/Plan: Assessment/Plan: * Bilateral pneumonitis: Differential diagnosis primarily for infectious versus noninfectious etiologies such as Taxol induced hypersensitivity pneumonitis. Pneumocystis would be consideration from Infectious standpoint and plans are in place for bronchoscopy later today which will be best test to assess for this entity. Doubt this is due to typical pathogens of community- acquired pneumonia. Has now received 5 days of ceftriaxone so will discontinue this pending bronchoscopy cultures. Will obtain urine Legionella antigen. Will continue azithromycin in interim in event atypical etiology. If infectious workup negative, likely will proceed with treatment including corticosteroids targeting possibility of hypersensitivity pneumonitis. * Oral HSV: Continue p.o. Valtrex. 07/25/18 11:14 07/25/18 11:16 07/25/18 11:16 Subjective: Patient complains of persistent dry cough and shortness of breath. Objective: Vital Signs Temp Pulse Resp BP Pulse Ox 36.4 C 95 20 106/68 93 07/25/18 07:06 07/25/18 07:06 07/25/18 07:06 07/25/18 07:06 07/25/18 07:06 Laboratory Results 07/25/18 04:52 07/25/18 04:52 07/24/18 07/25/18 07/26/18 05:59 05:59 05:59 Intake Total 1775 800 Output Total 3250 3550 600 Balance -1475 -2750 -600 Ceftriaxone # 5 Azithromycin # 5 Blood cultures x2 no growth Respiratory pathogen PCR negative - Physical Exam General Appearance: alert, no apparent distress EENT: No scleral icterus, No thrush, No conjunctival petechiae Respiratory: crackles (Fine crackles bilateral lower lung field), No respiratory distress Cardiac/Chest: regular rate, rhythm Extremities: No inflammation Abdomen: non-tender, No distended Skin: No rash ICD10 Worksheet Patient Problems: Problems Problem Status Onset Left lower lobe pneumonia Acute Tachycardia Acute Cervical strain Acute Minor head injury without loss of consciousness Acute Traumatic hematoma of thoracic region Acute
--- NOTE | 2018-07-25 11:33 | ASMTCMCOM ---
CM Note CM Note Notes: Pt with a hx of breast ca, in with bilateral pneumonitis, she is scheduled for a bronchoscopy today. PT has cleared pt for home. CM w/f for any changes in needs. DC Plan: Independent Date Signed: 07/25/2018 11:32 AM Electronically Signed By:Emelyn Banks RN
[2018-07-25] MEDS ORDERED: ALBUTEROL 3 ML DEYVIAL ONE (14:18)
[2018-07-25] MEDS ORDERED: NS 500 ML IV ONE (14:19)
[2018-07-25] MEDS ORDERED: ALBUTEROL 3 ML DEYVIAL IH ONE (14:19)
[2018-07-25] MEDS ORDERED: MIDAZOLAM 2 MG/2 ML VIAL ONE (14:42)
[2018-07-25] MEDS ORDERED: fentaNYL 100 MCG/2 ML INJ ONE (14:42)
--- NOTE | 2018-07-25 14:46 | PDPROPOC ---
Sedation Plan of Care Sedation Plan of Care: vital signs stable, mental status noted, patient educated of risks, benefits, alternatives, patient can tolerate sedation ASA Classification: ASA 2 Planned drugs: fentanyl, midazolam Mallampati Score: Class 2 Mallampati Reference Image: Patient passed 3-3-2 rule?: Yes
--- NOTE | 2018-07-25 14:49 | SOAPPROG ---
SOAP Progress Note Assessment/Plan: Assessment/Plan: * Pneumonitis -bronch today * Breast cancer-s/p taxol * Acute resp failure-secondary to above * HTN * Cough Subjective: No change in breathlessness or cough Objective: Vital Signs Temp Pulse Resp BP Pulse Ox 36.9 C 90 18 124/75 H 96 07/25/18 14:28 07/25/18 14:28 07/25/18 14:28 07/25/18 14:28 07/25/18 14:28 Laboratory Results 07/25/18 04:52 07/25/18 04:52 07/24/18 07/25/18 07/26/18 05:59 05:59 05:59 Intake Total 1775 800 Output Total 3250 3550 600 Balance -1475 -2750 -600 PT 14.3 SEC (12.0-15.0) 07/20/18 17:35 INR 1.09 (0.83-1.16) 07/20/18 17:35 - Time Spent With Patient Time Spent With Patient: 25 min of time spent with patient, over 1/2 involved with coordination of care or counseling Physical Exam - Physical Exam General Appearance: WD/WN, alert, no apparent distress, moderate distress Neck: non-tender Respiratory: chest non-tender, crackles (few), No respiratory distress, No wheezing Cardiac/Chest: normal peripheral pulses, regular rate, rhythm Peripheral Pulses: 2+: carotid (R), carotid (L), femoral (R), femoral (L), dorsalis-pedis (R), dorsalis-pedis (L) Abdomen: normal bowel sounds, non-tender, soft Pelvic Exam: deferred Rectal: deferred Skin: normal color, warm/dry Neuro/Psych: no motor/sensory deficits, alert, normal mood/affect, oriented x 3 ICD10 Worksheet Patient Problems: Problems Problem Status Onset Left lower lobe pneumonia Acute Tachycardia Acute Cervical strain Acute Minor head injury without loss of consciousness Acute Traumatic hematoma of thoracic region Acute
[2018-07-25] MEDS: guaiFENesin/CODEINE PHOS 10 ML UDCUP PO PRN (16:33)
[2018-07-25] MEDS ORDERED: IBUPROFEN 600 MG TAB PO PRN (20:51)
[2018-07-26] MEDS: guaiFENesin/CODEINE PHOS 10 ML UDCUP PO PRN (07:39)
[2018-07-26] MEDS: AZITHROMYCIN IV 500 MG in NS 250 ML IV SCH (07:40)
[2018-07-26] MEDS: CHOLECALCIFEROL VIT D3 2,000 UNITS TAB/CAP PO SCH (07:41)
[2018-07-26] MEDS: MULTIVITAMINS 1 EACH TAB PO SCH (07:42)
[2018-07-26] MEDS: ENOXAPARIN 40 MG/0.4 ML SYR SC SCH (07:43)
[2018-07-26] MEDS: valACYclovir 500 MG TAB PO SCH ×2 (07:47→20:20)
--- NOTE | 2018-07-26 09:03 | PCMIDPN ---
Assessment/Plan: 1. Bilateral lower lobe pneumonitis in immunocompromised host: Multiple bronchoscopy specimens are pending. Will add Legionella culture, although this organism should be treated with azithromycin. Radiographic appearance looks inconsistent with Aspergillus, but will add Aspergillus antigen both on bronchoscopy specimen and serum. Pneumocystis stain should be back by this afternoon. Agree that Taxol toxicity seems more likely, although interestingly the patient only got 1 dose. Will continue azithromycin alone for now pending Legionella urine antigen results. Will change to p.o. Formulation as patient has no diarrhea, nausea or vomiting that would interfere with absorption. 2. Oral labial HSV: Continue Valtrex another day, then discontinue. Lesions are crusted over and almost resolved entirely. Over 25 min spent with this patient today. Subjective: Underwent bronchoscopy yesterday. Spiked a fever to 39 after of procedure. Still has dry cough. Feels slightly better during this hospital admission, but is frustrated by on going cough. No sputum production. Objective: Azithromycin 500 mg IV day 6 T-max 39 degrees 94% on 2 L Vital Signs Temp Pulse Resp BP Pulse Ox 36.6 C 76 16 116/72 97 07/26/18 08:00 07/26/18 08:00 07/26/18 08:00 07/26/18 08:00 07/26/18 08:00 Microbiology 07/25/18 15:08 Gram Stain - Final Bronchial Alveolar Lavage - Right Lower Lobe Laboratory Results 07/25/18 04:52 07/25/18 04:52 07/25/18 07/26/18 07/27/18 05:59 05:59 05:59 Intake Total 800 1280 Output Total 3550 900 Balance -2750 380 Urine Legionella antigen pending Bronchoscopy 1+ epithelial cells, no organisms Fungal culture, bacterial culture, and AFB pending, including AFB PCR Pneumocystis stain pending - Physical Exam General Appearance: other (Looks tired, sitting in chair, eating breakfast, wearing hat) EENT: pharynx normal, other (Small scabbed lesion on philtrum as well as lower lip, barely visible), No thrush Respiratory: crackles (Fine crackles bilateral lung bases, coughs with deep inspiration,) Cardiac/Chest: regular rate, rhythm, other (Port left chest looks fine) Abdomen: non-tender, soft Skin: No rash Neuro/Psych: oriented x 3 ICD10 Worksheet Patient Problems: Problems Problem Status Onset Left lower lobe pneumonia Acute Tachycardia Acute Cervical strain Acute Minor head injury without loss of consciousness Acute Traumatic hematoma of thoracic region Acute
[2018-07-26] MEDS: FLUTICASONE HFA 220 MCG MDI IH SCH (09:30)
--- NOTE | 2018-07-26 10:52 | HOSPPROG ---
Hospitalist Progress Note Assessment/Plan: 57 yo F with breast cancer, last chemo July 10, due for next round on here with LLL pna. Has had progressive anemia during stay. LLL PNA- not neutropenic, and with leukocytosis. continue azithro CT showed multifocal pneumonia, no sig effusion this doesnt really management architect there is concern that this is a drug reaction to taxol and not infection bronch yesterday; fever thereafter d/w ID difficult to reconcile fever w noninfectious cause of infiltrates 1. await micro 2. continue azith ? PE: PE w sig airspace disease which likely explains current presentation no utility in ddimer hold off on repeat CT w contrast anemia- H/H has trended down over her stay, now down to 02/24 and she is symptomatic. I discussed case with risk and insurance consultant oncologist who feels this is likely due to chemo. Will transfuse 1 unit PRBCs, irradiated and CMV negative. Breast Cancer- stage 2, last chemo 07/10 and she will be due for next cycle on Tuesday 07/24. Discussed case with risk and insurance consultant oncologist, who felt if possible best to discharge and have her make her appt, but chemo will likely be held. HTN- takes losartan. would hold as she was septic on arrival. resume PRN asthma-Doing well without steroids so far. continue nebs/albuterol for now. PPX- Lovenox, SCDs fluids- NS Lytes- WNL Nutrition- regular Cor- Full Dispo- inpatient for sepsis, Pna, anemia. Subjective: bronch yesterday- micro neg thus far. febrile last analilia. feels better today. case d/w dr penn Objective: Vital Signs Temp Pulse Resp BP Pulse Ox 36.6 C 87 18 116/72 97 07/26/18 08:00 07/26/18 09:31 07/26/18 09:31 07/26/18 08:00 07/26/18 09:31 Microbiology 07/25/18 15:08 Gram Stain - Final Bronchial Alveolar Lavage - Right Lower Lobe Laboratory Results 07/25/18 04:52 07/25/18 04:52 07/25/18 07/26/18 07/27/18 05:59 05:59 05:59 Intake Total 800 1280 Output Total 3550 900 Balance -2750 380 PT 14.3 SEC (12.0-15.0) 07/20/18 17:35 INR 1.09 (0.83-1.16) 07/20/18 17:35 - Physical Exam Constitutional: no apparent distress, appears nourished Eyes: PERRL, anicteric sclera Ears, Nose, Mouth, Throat: moist mucous membranes, hearing normal Cardiovascular: regular rate and rhythym, no murmur, rub, or gallop, No tachycardia, No bradycardia Respiratory: other (diffuse crackles) Gastrointestinal: normoactive bowel sounds, soft, non-tender abdomen Genitourinary: No bolden in urethra Skin: warm, normal color Musculoskeletal: full muscle strength, no muscle tenderness ICD10 Worksheet Patient Problems: Problems Problem Status Onset Left lower lobe pneumonia Acute Tachycardia Acute Cervical strain Acute Minor head injury without loss of consciousness Acute Traumatic hematoma of thoracic region Acute
[2018-07-26] MEDS: ACETAMINOPHEN 325 MG TAB PO PRN ×3 (11:02→23:15)
[2018-07-26] MEDS: NS 1,000 ML IV SCH ×2 (11:03→20:20)
--- NOTE | 2018-07-26 11:16 | SOAPPROG ---
SOAP Progress Note Assessment/Plan: Assessment: Marija is a 57 yo female with hx of breast cancer admitted for hypoxic respiratory failure. 1. Pneumonitis with hypoxic respiratory failure: I reviewed her recent CT imaging that demonstrates bilateral infiltrates at the bases of both lungs. She underwent a bronch with micro pending. I would wait another day before initiating prednisone to ensure this isn't an infectious process. Will continue to monitor her fever. 2. Breast cancer: Followed by Dr. Jorgensen. S/p dd Taxol with neulasta. 3. Pleurisy: this is secondary to #1. 4. Leucocytosis: This could be from underlying infection versus previous Neulasta exposure. 07/26/18 11:15 Subjective: Underwent bronch yesterday. States that her breathing has improved since. No changes in oxygen requirement. Did develop a fever thereafter. Objective: Vital Signs Temp Pulse Resp BP Pulse Ox 36.6 C 87 18 116/72 97 07/26/18 08:00 07/26/18 09:31 07/26/18 09:31 07/26/18 08:00 07/26/18 09:31 Microbiology 07/25/18 15:08 Gram Stain - Final Bronchial Alveolar Lavage - Right Lower Lobe Laboratory Results 07/25/18 04:52 07/25/18 04:52 07/25/18 07/26/18 07/27/18 05:59 05:59 05:59 Intake Total 800 1280 Output Total 3550 900 Balance -2750 380 PT 14.3 SEC (12.0-15.0) 07/20/18 17:35 INR 1.09 (0.83-1.16) 07/20/18 17:35 Gen: Conversant, mild conversational dyspnea HEENT: NC in place, op clear, EOMI CV: RRR Pulm: Bilateral crackles at the bases Psych: Appropriate affect Neuro: Moving all ext Ext: no C/C/E ICD10 Worksheet Patient Problems: Problems Problem Status Onset Left lower lobe pneumonia Acute Tachycardia Acute Cervical strain Acute Minor head injury without loss of consciousness Acute Traumatic hematoma of thoracic region Acute
--- NOTE | 2018-07-26 15:30 | SOAPPROG ---
SOAP Progress Note Assessment/Plan: Assessment/Plan: * Pneumonitis -bronch results pending -consider starting steroids in the morning * Breast cancer-s/p taxol * Acute resp failure-secondary to above * HTN * Cough Subjective: Sitting up in chair. Resting comfortably. Cough is improved Objective: Vital Signs Temp Pulse Resp BP Pulse Ox 36.6 C 82 16 119/71 96 07/26/18 11:12 07/26/18 11:12 07/26/18 11:12 07/26/18 11:12 07/26/18 11:12 Microbiology 07/25/18 15:08 Gram Stain - Final Bronchial Alveolar Lavage - Right Lower Lobe 07/25/18 15:08 Mycobacterial Smear (BREANN) - Final Bronchial Alveolar Lavage - Right Lower Lobe Mycobacterium tuberculosis DNA ( PCR - Final Pcr Negative For M. Tb Complex Laboratory Results 07/25/18 04:52 07/25/18 04:52 07/25/18 07/26/18 07/27/18 05:59 05:59 05:59 Intake Total 800 1280 Output Total 3550 900 900 Balance -2750 380 -900 PT 14.3 SEC (12.0-15.0) 07/20/18 17:35 INR 1.09 (0.83-1.16) 07/20/18 17:35 Laboratory Results 07/25/18 04:52 07/25/18 04:52 07/25/18 15:08 Mycobacterial Smear (BREANN) - Final Bronchial Alveolar Lavage - Right Lower Lobe Mycobacterium tuberculosis DNA ( PCR - Final Pcr Negative For M. Tb Complex 07/25/18 15:08 Gram Stain - Final Bronchial Alveolar Lavage - Right Lower Lobe Bronchial Culture - Preliminary 07/25/18 15:08 Fungal Culture - Pending Bronchial Alveolar Lavage - Right Lower Lobe 07/20/18 18:13 Respiratory Panel (PCR) - Final Nasal, Sinus - Swab No Organism Detected By Pcr - Time Spent With Patient Time Spent With Patient: 25 min of time spent with patient, over 1/2 involved coordination of care or counseling. Case discussed with Oncology Physical Exam - Physical Exam General Appearance: WD/WN, alert, no apparent distress EENT: PERRL/EOMI Neck: non-tender, full range of motion Respiratory: chest non-tender, lungs clear, crackles (Basilar) Cardiac/Chest: normal peripheral pulses, regular rate, rhythm Abdomen: normal bowel sounds, non-tender, soft Pelvic Exam: deferred Rectal: deferred Skin: normal color, warm/dry Extremities: normal range of motion, non-tender, normal inspection, normal capillary refill Neuro/Psych: no motor/sensory deficits, alert, normal mood/affect, oriented x 3 ICD10 Worksheet Patient Problems: Problems Problem Status Onset Left lower lobe pneumonia Acute Tachycardia Acute Cervical strain Acute Minor head injury without loss of consciousness Acute Traumatic hematoma of thoracic region Acute
[2018-07-27] MEDS: OXYMETAZOLINE 30 ML NASAL SPRAY EACHNARE PRN (01:50)
[2018-07-27] MEDS: ACETAMINOPHEN 325 MG TAB PO PRN (05:42)
[2018-07-27] MEDS: NS 1,000 ML IV SCH (05:42)
[2018-07-27] MEDS: guaiFENesin/CODEINE PHOS 10 ML UDCUP PO PRN (08:14)
[2018-07-27] MEDS: CHOLECALCIFEROL VIT D3 2,000 UNITS TAB/CAP PO SCH (08:15)
[2018-07-27] MEDS: MULTIVITAMINS 1 EACH TAB PO SCH (08:15)
[2018-07-27] MEDS: ENOXAPARIN 40 MG/0.4 ML SYR SC SCH (08:16)
[2018-07-27] MEDS: valACYclovir 500 MG TAB PO SCH ×2 (08:16→21:25)
[2018-07-27] MEDS ORDERED: AZITHROMYCIN 250 MG TAB PO SCH (09:00)
[2018-07-27] MEDS: ALBUTEROL 3 ML DEYVIAL IH PRN (09:40)
[2018-07-27] MEDS: FLUTICASONE HFA 220 MCG MDI IH SCH ×2 (09:40→09:57)
--- NOTE | 2018-07-27 12:23 | HOSPPROG ---
Hospitalist Progress Note Assessment/Plan: 57 yo F with breast cancer, last chemo July 10, due for next round on here with LLL pna. Has had progressive anemia during stay. LLL PNA- not neutropenic, and with leukocytosis. continue azithro CT showed multifocal pneumonia, no sig effusion this doesnt really bladder changer there is concern that this is a drug reaction to taxol and not infection bronch yesterday; fever thereafter d/w ID difficult to reconcile fever w noninfectious cause of infiltrates 1. await micro 2. continue azith 07/27 micro neg start steroids AHRF: 2/2 above ? PE: PE w sig airspace disease which likely explains current presentation no utility in ddimer hold off on repeat CT w contrast 07/27- parenchymal disease not really c/w pe anemia- H/H has trended down over her stay, now down to 02/24 and she is symptomatic. I discussed case with landscape contractor oncologist who feels this is likely due to chemo. Will transfuse 1 unit PRBCs, irradiated and CMV negative. Breast Cancer- stage 2, last chemo 07/10 and she will be due for next cycle on Tuesday 07/24. Discussed case with landscape contractor oncologist, who felt if possible best to discharge and have her make her appt, but chemo will likely be held. HTN- takes losartan. would hold as she was septic on arrival. resume PRN asthma-Doing well without steroids so far. continue nebs/albuterol for now. PPX- Lovenox, SCDs fluids- NS Lytes- WNL Nutrition- regular Cor- Full Dispo- likely dc in next 1-2 days Subjective: case d/w [facility] Objective: Vital Signs Temp Pulse Resp BP Pulse Ox 36.6 C 93 20 126/74 H 95 07/27/18 11:33 07/27/18 11:33 07/27/18 11:33 07/27/18 11:33 07/27/18 11:33 Microbiology 07/25/18 15:08 Gram Stain - Final Bronchial Alveolar Lavage - Right Lower Lobe 07/25/18 15:08 Mycobacterial Smear (BREANN) - Final Bronchial Alveolar Lavage - Right Lower Lobe Mycobacterium tuberculosis DNA ( PCR - Final Pcr Negative For M. Tb Complex Laboratory Results 07/25/18 04:52 07/25/18 04:52 07/26/18 07/27/18 07/28/18 05:59 05:59 05:59 Intake Total 1280 350 Output Total 900 2100 Balance 380 -1750 PT 14.3 SEC (12.0-15.0) 07/20/18 17:35 INR 1.09 (0.83-1.16) 07/20/18 17:35 - Physical Exam Constitutional: no apparent distress, appears nourished Eyes: PERRL, anicteric sclera Ears, Nose, Mouth, Throat: moist mucous membranes, hearing normal Cardiovascular: regular rate and rhythym, no murmur, rub, or gallop Respiratory: no respiratory distress, other (crackles on R), No no rales or rhonchi Gastrointestinal: normoactive bowel sounds, soft, non-tender abdomen Genitourinary: no bladder fullness, No bolden in urethra Skin: warm Musculoskeletal: full muscle strength Neurologic: AAOx3 Psychiatric: interacting appropriately ICD10 Worksheet Patient Problems: Problems Problem Status Onset Left lower lobe pneumonia Acute Tachycardia Acute Cervical strain Acute Minor head injury without loss of consciousness Acute Traumatic hematoma of thoracic region Acute
[2018-07-27 12:44] LABS: PLATELET COUNT 347 10^3/uL (150-400)
--- NOTE | 2018-07-27 13:03 | PDINTPN ---
Dye Operator Progress Note Assessment/Plan: Assessment/Plan: * Pneumonitis-likely secondary to Taxol -prednisone 60 mg started today * Breast cancer-s/p taxol * Acute resp failure-secondary to above * HTN * Cough * Disposition-okay for discharge home with follow-up with myself in 2 weeks. Would continue prednisone at 60 mg a day until she sees me in the office Subjective: Sitting up in chair. Resting comfortably. No current complaints. Objective: Vital Signs Temp Pulse Resp BP Pulse Ox 36.6 C 93 20 126/74 H 95 07/27/18 11:33 07/27/18 11:33 07/27/18 11:33 07/27/18 11:33 07/27/18 11:33 Microbiology 07/25/18 15:08 Gram Stain - Final Bronchial Alveolar Lavage - Right Lower Lobe 07/25/18 15:08 Mycobacterial Smear (BREANN) - Final Bronchial Alveolar Lavage - Right Lower Lobe Mycobacterium tuberculosis DNA ( PCR - Final Pcr Negative For M. Tb Complex Laboratory Results 07/27/18 12:20 07/26/18 07/27/18 07/28/18 05:59 05:59 05:59 Intake Total 1280 350 Output Total 900 2100 Balance 380 -1750 PT 14.3 SEC (12.0-15.0) 07/20/18 17:35 INR 1.09 (0.83-1.16) 07/20/18 17:35 - Time Spent With Patient Time Spent With Patient: 25 min of time spent with patient, over 1/2 involved with coordination of care counseling. Case discussed with Nursing and hospitalist Physical Exam - Physical Exam General Appearance: alert, no apparent distress EENT: PERRL/EOMI Neck: non-tender, supple Respiratory: crackles (Bibasilar), No respiratory distress, No wheezing Cardiac/Chest: normal peripheral pulses, regular rate, rhythm Peripheral Pulses: 2+: carotid (R), carotid (L), femoral (R), femoral (L), dorsalis-pedis (R), dorsalis-pedis (L) Abdomen: normal bowel sounds, non-tender, soft Pelvic Exam: deferred Rectal: deferred Skin: normal color, warm/dry Neuro/Psych: no motor/sensory deficits, alert, normal mood/affect, oriented x 3 ICD10 Worksheet Patient Problems: Problems Problem Status Onset Left lower lobe pneumonia Acute Tachycardia Acute Cervical strain Acute Minor head injury without loss of consciousness Acute Traumatic hematoma of thoracic region Acute
[2018-07-27] MEDS: predniSONE 20 MG TAB PO SCH (13:39)
--- NOTE | 2018-07-27 16:28 | SOAPPROG ---
SOAP Progress Note Assessment/Plan: Assessment: Marija is a 57 yo female with hx of breast cancer admitted for hypoxic respiratory failure. 1. Taxol pneumonitis: She was initially treated for community-acquired pneumonia with minimal improvement. She subsequently had a CT of the chest concerning for pneumonitis. She is currently on prednisone 60 mg p.o. Daily. She will follow up with Dr. Jorgensen in clinic. Will need to follow-up on the bronchoscopy cultures although preliminarily they are negative. 2. Breast cancer: Followed by Dr. Jorgensen. S/p dd Taxol with neulasta. 3. Anemia: Secondary to chemotherapy. 07/27/18 16:25 Subjective: Overall she reports her breathing has improved. She denies any chest pain or significant cough currently. No fevers or chills. Objective: Vital Signs Temp Pulse Resp BP Pulse Ox 36.5 C 91 20 136/79 H 97 07/27/18 15:18 07/27/18 15:18 07/27/18 15:18 07/27/18 15:18 07/27/18 15:18 Microbiology 07/25/18 15:08 Gram Stain - Final Bronchial Alveolar Lavage - Right Lower Lobe 07/25/18 15:08 Mycobacterial Smear (BREANN) - Final Bronchial Alveolar Lavage - Right Lower Lobe Mycobacterium tuberculosis DNA ( PCR - Final Pcr Negative For M. Tb Complex Laboratory Results 07/27/18 12:20 07/27/18 12:20 07/26/18 07/27/18 07/28/18 05:59 05:59 05:59 Intake Total 1280 350 350 Output Total 900 2100 1000 Balance 380 -1750 -650 PT 14.3 SEC (12.0-15.0) 07/20/18 17:35 INR 1.09 (0.83-1.16) 07/20/18 17:35 General: Pleasant-appearing female in no acute distress Pulmonary: Fine crackles at the bases of improved dramatically CV: Regular rhythm no murmurs gallops rubs Abdomen: Soft nontender nondistended bowel sounds are present Extremities: No cyanosis clubbing or edema Psych: Appropriate affect ICD10 Worksheet Patient Problems: Problems Problem Status Onset Left lower lobe pneumonia Acute Tachycardia Acute Cervical strain Acute Minor head injury without loss of consciousness Acute Traumatic hematoma of thoracic region Acute
--- NOTE | 2018-07-27 16:35 | ASMTCMCOM ---
CM Note CM Note Notes: Reviwed chart, PT clears pt for home. Plan remains the same, she will dc home when medically stable. CM available for any changes. DC Plan: Independent Date Signed: 07/27/2018 04:34 PM Electronically Signed By:Emelyn Banks RN
--- NOTE | 2018-07-27 18:40 | PCMIDPN ---
Assessment/Plan: Assessment/Plan: * Bilateral pneumonitis: Workup for infectious etiology has been negative to date. Overall presentation concerning for Taxol induced pulmonary hypersensitivity. Remains consideration that infectious etiology was present which has now improved post ceftriaxone and azithromycin. Plan continued observation off antibiotics. Will follow up Legionella culture and BAL Aspergillus antigen over time. Advised patient to notify me if she develops recurrent fever or worsening symptoms. Probable discharge home tomorrow. 07/27/18 18:38 Subjective: Patient feels significantly improved today. Still requires oxygen. Ambulating more readily. Objective: Vital Signs Temp Pulse Resp BP Pulse Ox 36.5 C 91 20 136/79 H 97 07/27/18 15:18 07/27/18 15:18 07/27/18 15:18 07/27/18 15:18 07/27/18 15:18 Microbiology 07/25/18 15:08 Gram Stain - Final Bronchial Alveolar Lavage - Right Lower Lobe 07/25/18 15:08 Mycobacterial Smear (BREANN) - Final Bronchial Alveolar Lavage - Right Lower Lobe Mycobacterium tuberculosis DNA ( PCR - Final Pcr Negative For M. Tb Complex Laboratory Results 07/27/18 12:20 07/27/18 12:20 07/26/18 07/27/18 07/28/18 05:59 05:59 05:59 Intake Total 1280 350 350 Output Total 900 2100 1000 Balance 380 -1750 -650 Status post ceftriaxone x5 days and azithromycin x7 days BAL culture mixed oral alvarez BAL PCP stain negative BAL Legionella culture and Aspergillus antigen pending Urine Legionella antigen negative - Physical Exam General Appearance: alert, no apparent distress EENT: No scleral icterus Respiratory: crackles (Fine crackles most prominent at right base but also present at left base) Cardiac/Chest: regular rate, rhythm Abdomen: non-tender, No distended ICD10 Worksheet Patient Problems: Problems Problem Status Onset Left lower lobe pneumonia Acute Tachycardia Acute Cervical strain Acute Minor head injury without loss of consciousness Acute Traumatic hematoma of thoracic region Acute
[2018-07-28] MEDS: MULTIVITAMINS 1 EACH TAB PO SCH (09:33)
[2018-07-28] MEDS: valACYclovir 500 MG TAB PO SCH (09:33)
[2018-07-28] MEDS: predniSONE 20 MG TAB PO SCH (09:33)
[2018-07-28] MEDS: CHOLECALCIFEROL VIT D3 2,000 UNITS TAB/CAP PO SCH (09:33)
[2018-07-28] MEDS: ENOXAPARIN 40 MG/0.4 ML SYR SC SCH (10:11)
[2018-07-28] MEDS: OXYMETAZOLINE 30 ML NASAL SPRAY EACHNARE PRN (10:13)
[2018-07-28] MEDS: ALBUTEROL 3 ML DEYVIAL IH PRN (10:21)
[2018-07-28] MEDS: FLUTICASONE HFA 220 MCG MDI IH SCH (10:22)
[2018-07-28 11:21] VITALS: BP 135/80
--- NOTE | 2018-07-28 14:24 | PDHOMEO2F ---
Home Oxygen Face to Face Home Orders: I certify that a physician or a nurse practitioner or physician's casting assistant has had a [id number]-xysd encounter with this patient on the date of this order due to the diagnosis listed, which relates to the primary reason the patient requires home oxygen. Alternative treatments have been tried, or considered, and deemed ineffective. It is anticipated that supplemental oxygen will result in improvement with treatment. Home oxygen qualifying diagnosis: hypoxia SpO2 on room air (%): 80% Frequency of home oxygen needed: continuous Home oxygen liters per minute: 2 Home oxygen delivery device: nasal cannula Concentrator: Yes E-tanks for mobility and back up: Yes If ordering portable O2, is the patient mobile in the home?: Yes I certify that, based on these findings, the home oxygen is medically necessary for this patient for the following length of time. Length of time home oxygen needed: 99 years
--- NOTE | 2018-07-28 15:15 | SOAPPROG ---
SOAP Progress Note Assessment/Plan: E&M for Breast Cancer * Pneumonitis probably due to Paclitaxel: She seems to be doing much better on the prednisone. Her oxygen needs are improved although she still needs some oxygen. She is breathing comfortably and she feels well. From an oncology standpoint there is no contraindication to going home with follow-up with Dr. Jorgensen. She is also being seen by Dr. Collins who will also assist with the steroid taper. Specialized studies and cultures still remain negative for a infectious source. I appreciate infectious disease input. * Stage IIb left breast cancer, ER weakly positive, OR negative, HER-2 negative : She has been undergoing neoadjuvant chemotherapy with dose dense AC followed by dose dense Taxol. I discussed further therapy with the patient and deferred the final recommendations to Dr. Jorgensen. She will need to avoid paclitaxel. It is unclear the cross-reactivity to the other taxanes. The options include switching to a different drug versus going forward with the surgery now. Subjective: She is breathing easier and feeling much better. She denies any current pain. Objective: Vital Signs Temp Pulse Resp BP Pulse Ox 36.3 C 99 20 135/80 H 96 07/28/18 11:18 07/28/18 11:18 07/28/18 11:18 07/28/18 11:18 07/28/18 11:18 Microbiology 07/25/18 15:08 Gram Stain - Final Bronchial Alveolar Lavage - Right Lower Lobe Bronchial Culture - Final Laboratory Results 07/27/18 12:20 07/27/18 12:20 07/27/18 07/28/18 07/29/18 05:59 05:59 05:59 Intake Total 350 750 Output Total 2100 2200 Balance -1750 -1450 PT 14.3 SEC (12.0-15.0) 07/20/18 17:35 INR 1.09 (0.83-1.16) 07/20/18 17:35 Physical Exam - Physical Exam General Appearance: no apparent distress Respiratory: lungs clear, No crackles, No rhonchi, No wheezing Cardiac/Chest: regular rate, rhythm ICD10 Worksheet Patient Problems: Problems Problem Status Onset Left lower lobe pneumonia Acute Tachycardia Acute Cervical strain Acute Minor head injury without loss of consciousness Acute Traumatic hematoma of thoracic region Acute
--- NOTE | 2018-07-28 15:58 | ASDISCHSUM ---
Discharge Information Plan Status:Home with No Needs Medically Cleared to Leave:07/27/2018 Discharge Date:07/27/2018 CM D/C Disposition:Home, Routine, Self-Care ADT D/C Disposition:Home, Routine, Self-Care Projected Discharge Date:07/27/2018 Transportation at D/C:Family Discharge Delay Reason: Follow-Up Date:07/27/2018 Discharge Slot: Final Diagnosis:Pneumonia Placement Information Patient Contact Information Contact Name:ISAC Relationship: Address:[facility] [address] City:[place] Phone: State/Zip Code:[place] [address] Email: Financial Information Financial Class:Commercial Primary Plan Desc:[facility] Primary Plan Number:[id number] Secondary Plan Desc: Secondary Plan Number: Assessment Information LACE LACE Length of stay for Answers: 7-13 days current admission Acuity / Level of Answers: Yes Care: Did the patient have an inpatient admission? Comorbidities - select Answers: Other Notes: Breast Ca, Asthma all that apply # of Emergency department Answers: 1-2 visits in the last 6 months Score: 10 Date Signed: 07/28/2018 03:56 PM Electronically Signed By:Annette Gooden [facility] CM Progress Note CM Note CM Note Notes: Pt with a hx of breast ca, admitted for pneumonia. She lives at home with her , PT/OT therapies ordered, CM w/f. DC Plan: TBD Date Signed: 07/21/2018 12:08 PM Electronically Signed By:Emelyn Banks RN BC CM Progress Note CM Note CM Note Notes: Therapies have cleared pt to d/c home without any needs. CM available for changes. Plan: Independent w/ supportive Date Signed: 07/23/2018 11:06 AM Electronically Signed By:CHENCHO Rock [facility] CM Progress Note CM Note CM Note Notes: Pt with a hx of breast ca, in with bilateral pneumonitis, she is scheduled for a bronchoscopy today. PT has cleared pt for home. CM w/f for any changes in needs. DC Plan: Independent Date Signed: 07/25/2018 11:32 AM Electronically Signed By:Emelyn Banks RN BC CM Progress Note CM Note CM Note Notes: Reviwed chart, PT clears pt for home. Plan remains the same, she will dc home when medically stable. CM available for any changes. DC Plan: Independent Date Signed: 07/27/2018 04:34 PM Electronically Signed By:Emelyn Banks RN Case Management Discharge Plan Note Case Management Discharge Discharge Order Complete? Answers: Yes Patient to Obtain Answers: via Family Medications Transportation Arranged Answers: Family/Friends Transport will Pick (Date 07/28/2018 12:00 AM & Time) Family Notified Answers: Yes Discharge Comments Notes: Spoke with pt in the room regarding OT recommendation for home care. Pt confirmed she has an abundance of family in for the holiday one of which is an RN. Family will be able to help her recover. O2 delivered to the room before D/C. No CM needs noted at this time. Date Signed: 07/28/2018 03:55 PM Electronically Signed By:Annette Gooden Intervention Information
--- NOTE | 2018-07-29 10:46 | GDS ---
DISCHARGE DIAGNOSIS: Suspected pneumonia versus pulmonary side effect from Taxol chemotherapy. HISTORY OF PRESENT ILLNESS: The patient is a pleasant 57-year-old female with a past medical history of breast cancer, currently undergoing chemotherapy, who presented to [facility] on 07/[facility], with complaints of cough and fever. Chest CT revealed bilateral lower lobe and right middle lobe pneumonia with small effusions. The patient was treated for community-acquired pneumoni a and completed a course of antibiotics while here in the hospital. Consideration was given to pneum onitis secondary to Taxol as well, and she was started on prednisone therapy along with pulmonary con sultation. She did undergo a bronchoscopy during this hospitalization and [facility]. She will discharge with 60 mg of prednisone to be taken beatriz y until followup visit with Pulmonary Medicine. HOSPITAL COURSE BY PROBLEM: Pneumonia: Clinically much improved. The patient has completed a cours e of antibiotic therapy for suspected pneumonia, although also considering and being treated for the possibility of pneumonitis related to Taxol. Acute hypoxic respiratory failure: Patient will need supplemental oxygen leaving the hospital. Docu mentation has been made and arrangements for home oxygen are underway. Anemia: Stable. Hypertension: I recommend that she hold her antihypertensive therapy at this time. She has lost a s ignificant amount of weight since being treated for breast cancer, and her blood pressures here in [facility] have all been reasonably well controlled without any medical therapy. Asthma: Stable. No significant wheezing on exam. Breast cancer: Ongoing treatment with Oncology. DVT prophylaxis: Lovenox used during this hospitalization. DISPOSITION: Patient appears stable for discharge home today. DISCHARGE PHYSICAL EXAMINATION: VITAL SIGNS: Temperature 36.9, blood pressure 135/80, heart rate 99 , respirations 20, sating 96% 2 L nasal cannula. GENERAL: Patient appeared comfortable. She is rufino ke, alert, sitting in chair at the bedside, conversant in no acute distress. HEART: Regular rate an d rhythm. No murmur. LUNGS: Clear on auscultation without significant wheezing or crackles. ABDOM EN: Soft, nontender, nondistended. : No Santiago catheter in place. EXTREMITIES: No significant p itting edema. SKIN: No concerning skin rashes noted. NOTABLE STUDIES: White blood cell count 6, hemoglobin 7.7, platelets 347. Lactic acid 1.0. Sodium 138, potassium 4.0, chloride 108, bicarb 24, BUN 8, creatinine of 0.5, glucose 110, AST 73, ALT 69. BNP 115. C-reactive protein high sensitivity 0.9. Procalcitonin 0.22. Urine Legionella antigen neg ative. DISCHARGE MEDICATIONS: Albuterol inhaler as needed, valacyclovir 500 mg p.o. q.12 hours. The patien t was advised that she could hold this medication and take if recurrence of oral herpes lesions, pred nisone 60 mg daily, Flovent 220 mcg puffs daily. DISCHARGE INSTRUCTIONS: A followup visit with Dr. Collins of pulmonary medicine is recommended in 2 w eeks time. Otherwise, continue to follow up with her oncologist as previously planned. TIME SPENT: 35 minutes time dedicated to discharge efforts. /[id number]/MODL
== END 2018-07-28 17:02 | disposition home or self-care (01) | DRG 205 ==
LOC: F3E 20:52 → OBSVTOIN 07-21 14:14
PROVIDERS: ADMIT Internal Medicine; ATTEND Internal Medicine
DX: J70.2 Acute drug-induced interstitial lung disorders (principal); T45.1X5A Adverse effect of antineoplastic and immunosuppressive drugs, initial encounter; J18.0 Bronchopneumonia, unspecified organism; J96.01 Acute respiratory failure with hypoxia; D64.81 Anemia due to antineoplastic chemotherapy; C50.912 Malignant neoplasm of unspecified site of left female breast; B00.2 Herpesviral gingivostomatitis and pharyngotonsillitis; I10 Essential (primary) hypertension; J45.909 Unspecified asthma, uncomplicated
CPT/HCPCS: 87449-90; 97110-GO; 97110-GP; 97116-GP; 97161-GP; 97165-GO; 97530-GO; 97535-GO; G0378; J0171; J0456; J0692; J0696; J1642; J1650; J2250; J3010; J7512; J7613; P9016; P9040

== ENCOUNTER → 2018-09-21 | Outpatient (CLI) | payer OTHER | LOC: FIMAGING 08:33 | PROVIDERS: ATTEND Family Medicine | DX: Z12.31 Encounter for screening mammogram for malignant neoplasm of breast (principal); Z85.3 Personal history of malignant neoplasm of breast ==

== ENCOUNTER 2018-10-02 08:52 | Observation (INO) | payer OTHER ==
[2018-10-02] MEDS ORDERED: LR 1,000 ML IV ONE (09:03)
[2018-10-02] MEDS ORDERED: GENTAMICIN SULFATE 80 MG/2 ML VIAL ONE (09:58)
[2018-10-02] MEDS ORDERED: BUPIVACAINE 0.25% 30 ML SDV ONE (09:58)
[2018-10-02] MEDS ORDERED: ceFAZolin 1 GM/5 ML SYR ONE (09:58)
[2018-10-02] MEDS ORDERED: BACITRACIN 50,000 UNITS/10 ML SYR IRR ONE (09:59)
[2018-10-02] MEDS ORDERED: BACITRACIN ZINC 0.5 OZ OINTTUBE TP ONE (09:59)
--- NOTE | 2018-10-02 10:02 | POSTOPPROG ---
Post Op Note Date of Operation: 10/02/18 Surgeon: Chente Whiting Intake Nurse: Em Wallace PA-C Anesthesia: GET(General Endotracheal) Pre-op Diagnosis: Left breast cancer Post-op Diagnosis: same Procedure: Bilteral mastectomy with left axillary SLNB, bilateral reconstruction Inf/Abcess present in the surg proc area at time of surgery?: No EBL: 50-100 Complications: no immediate Drains: Sameer Cross (bilateral) Specimen(s): Right breast, left breast, left axillary sentinel lymph nodes
--- NOTE | 2018-10-02 10:04 | PDANEPAE ---
ANE History of Present Illness 58 y/o female with hx of breast CA here for b/l mastectomy w/ repair, L sentinel node biopsy ANE Past Medical History - Cardiovascular History Hx Hypertension: Yes Hx Arrhythmias: No Hx Chest Pain: No Hx Coronary Artery / Peripheral Vascular Disease: No Hx CHF / Valvular Disease: No Hx Palpitations: No Cardiovascular History Comment: BP runs low - Pulmonary History Hx COPD: No Hx Asthma/Reactive Airway Disease: Yes Hx Recent Upper Respiratory Infection: No Hx Oxygen in Use at Home: No Hx Sleep Apnea: No Sleep Apnea Screening Result - Last Documented: Negative Pulmonary History Comment: ASTHMA ENVIRONMENTAL TRIGGERS. WORSE WITH DUST IN AIR. 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 REEXCISION LT BREAST MARGINS 11/2016. LT BREAST LUMPECTOMY WITH SNL. WITH REMVL 3 LYMPH NODES. WITH SOME POST LYMPHADEMA. TUBAL LIGATIONS. NASAL RECONSTRUCTION FOR FX. PARTIAL HYSTERECTOMY. RT BREAST FIBROID REMVL ANE Review of Systems Review of systems is: negative Review of Systems: - Exercise capacity METS (RN): 4 METS ANE Patient History - Allergies Allergies/Adverse Reactions: cephalexin monohydrate [From Keflex] Allergy (Intermediate, Verified 09/14/18 12 :55) NAUSEA oxycodone HCl [From Percocet] Allergy (Intermediate, Verified 09/14/18 12:55) NAUSEA propoxyphene napsylate [From Darvocet-N 100] Allergy (Intermediate, Verified 03/25 12:55) NAUSEA Iodinated Contrast- Oral and IV Dye Allergy (Verified 09/14/18 12:55) PASSED OUT shellfish derived Allergy (Verified 09/14/18 12:55) Anaphylaxis - Home Medications Home medications: home medication list seen and reviewed Home Medications: Albuterol [Proventil Inhaler HFA (*)] 2 puffs IH DAILY 05/01/18 [Last Taken ] Cholecalciferol Vit D3 [Vitamin D3 2000 units tab (OTC)] 6,000 iunits PO DAILY 05/01/18 [Last Taken 07/20/18] Multivitamins [Multivitamin (*)] 1 each PO DAILY 05/01/18 [Last Taken 04/30/18 08:00] Tears/Dextran 70/Hypromellose [Natural Balance Tears (*)] 1 drop EACHEYE Q2HRS PRN 05/01/18 [Last Taken Unknown] Albuterol [Proventil Neb] 3 ml IH DAILY 07/20/18 [Last Taken 07/20/18] Ferrous Sulfate [Ferrous Sulf 325 MG (*)] 325 mg PO DAILY 09/07/18 [Last Taken Unknown] Herbals/Supplements -Info Only 1 ea PO DAILY 09/07/18 [Last Taken Unknown] [place]-3 Fatty Acids [Fish Oil 1000 mg (*)] 1,000 mg PO MWF 09/07/18 [Last Taken Unknown] Sulfamethox/Tmp 800/160 mg [Bactrim Ds] 1 tab PO MWF 09/07/18 [Last Taken Unknown] Vitamin B Complex [Vitamin B Complex (OTC)] 1 each PO DAILY 09/07/18 [Last Taken Unknown] valACYclovir [Valtrex (*)] 500 mg PO BID PRN 09/07/18 [Last Taken Unknown] - NPO status NPO Status: no food or drink >8 hours NPO Since - Liquids (Date): 10/02/18 NPO Since - Liquids (Time): 06:00 NPO Since - Solids (Date): 10/01/18 NPO Since - Solids (Time): 20:00 - Anes Hx Anes Hx: slow to awaken from anesthesia - Smoking Hx Smoking Status: Never smoked - Family Anes Hx Family Hx Anesthesia Complications: pt father and son hard to wake up BP dipped ANE Labs/Vital Signs - Vital Signs Blood Pressure: 147/86 Heart Rate: 76 Respiratory Rate: 16 O2 Sat (%): 98 Height: 168.91 cm Weight: 69.4 kg ANE Physical Exam - Airway Neck exam: decreased ROM Mallampati Score: Class 4 Mouth exam: normal dental/mouth exam, small mouth opening - Pulmonary Pulmonary: no respiratory distress - Cardiovascular Cardiovascular: regular rate and rhythym, no murmur, rub, or gallop - ASA Status ASA Status: II ANE Anesthesia Plan Anesthesia Plan: general endotracheal anesthesia Specialized Airway: video laryngoscope Total IV Anesthesia: Yes
[2018-10-02] MEDS ORDERED: MIDAZOLAM 2 MG/2 ML VIAL IVP ONE (10:14)
[2018-10-02] MEDS ORDERED: METHYLENE BLUE 0.5% 50 MG/10 ML AMP ONE (10:36)
[2018-10-02] MEDS ORDERED: CLINDAMYCIN 600 MG/DEXTROSE 50 ML IV ONE (10:41)
[2018-10-02] MEDS ORDERED: CEFAZOLIN 2 GM/DEXTROSE/100 ML BAG IV ONE (11:03)
[2018-10-02] MEDS ORDERED: ceFAZolin 2 GM/DEXTROSE 100 ML IV ONE (11:15)
[2018-10-02] MEDS ORDERED: fentaNYL 100 MCG/2 ML INJ ONE ×2 (11:18→12:00)
[2018-10-02] MEDS ORDERED: PROPOFOL 200 MG/20 ML VIAL ONE ×2 (11:18→13:30)
[2018-10-02] MEDS ORDERED: PROPOFOL/EMULSION 500 MG/50 ML BOTTLE IV ONE ×2 (11:18→12:14)
[2018-10-02] MEDS ORDERED: ROCURONIUM 50 MG/5 ML VIAL ONE (11:45)
[2018-10-02] MEDS ORDERED: DEXAMETHASONE 4 MG/ML VIAL ONE (11:45)
[2018-10-02] MEDS ORDERED: LIDOCAINE 2% 100 MG/5 ML SYR ONE (11:45)
[2018-10-02] MEDS ORDERED: KETOROLAC 30 MG/1 ML SDV ONE (11:50)
[2018-10-02] MEDS ORDERED: HYDROmorphONE/DILAUDID 2 MG/ML INJ ONE (12:01)
[2018-10-02] MEDS ORDERED: HYDROmorphONE/DILAUDID 2 MG/ML INJ IVP PRN (12:49)
[2018-10-02] MEDS ORDERED: PROMETHAZINE HCL 25 MG/ML INJ IVP PRN (12:49)
[2018-10-02] MEDS ORDERED: ACETAMINOPHEN 500 MG TAB PO PRN (12:49)
[2018-10-02] MEDS ORDERED: fentaNYL 100 MCG/2 ML INJ IVP PRN (12:49)
[2018-10-02] MEDS ORDERED: NALOXONE HCL 0.4 MG/ML INJ IVP PRN (12:49)
[2018-10-02] MEDS ORDERED: LR 500 ML IV PRN (12:49)
[2018-10-02] MEDS ORDERED: ALBUTEROL 3 ML DEYVIAL IH PRN (12:49)
[2018-10-02] MEDS ORDERED: ONDANSETRON 4 MG/2 ML VIAL IVP PRN ×2 (12:49→13:35)
[2018-10-02] MEDS ORDERED: ONDANSETRON 4 MG/2 ML VIAL ONE (13:17)
[2018-10-02] MEDS ORDERED: ePHEDrine SULFATE 25 MG/5 ML SYR ONE (13:18)
[2018-10-02] MEDS ORDERED: HYDROmorphONE/DILAUDID 1 MG/ML INJ IVP PRN (13:35)
[2018-10-02] MEDS ORDERED: ACETAMINOPHEN 325 MG TAB PO PRN (13:35)
[2018-10-02] MEDS ORDERED: TEMAZEPAM 15 MG CAP PO PRN (13:35)
[2018-10-02] MEDS ORDERED: SUGAMMADEX SODIUM 200 MG/2 ML VIAL IVP ONE (13:47)
[2018-10-02] MEDS ORDERED: BUPIVACAINE 0.5% 30 ML SDV ONE (13:47)
--- NOTE | 2018-10-02 14:17 | POSTANESTH ---
Post Anesthetic Evaluation Cardiovascular Status: Similar to Pre-Op Cond Respiratory Status: Similar to Pre-op Cond. Level of Consciousness/Mental Status: Alert and Oriented Pain Control: Adequate, Prn Tx Ordered Nausea/Vomiting Control: Adequate, Prn Tx Ordered Complications Possibly Related to Anesthesia: None Noted
--- NOTE | 2018-10-02 14:32 | GOP ---
[f rep st] OPERATIVE REPORT DATE OF OPERATION: 10/02/2018 SURGEON: Bennie Haley Jr., MD TIP BANDING MACHINE OPERATOR: Uche Espinal CST, by surgeon request (skilled surgical training specialist was necessary due t o the technical complexity of the case and desire to minimize patient anesthesia time.) ANESTHESIA: General inhalational anesthetic. ANESTHESIOLOGIST: Chente Painter MD PREOPERATIVE DIAGNOSIS: Left breast cancer. POSTOPERATIVE DIAGNOSIS: Left breast cancer. PROCEDURE PERFORMED: Immediate bilateral breast reconstruction utilizing tissue expanders and human dermal allograft. FINDINGS: ESTIMATED BLOOD LOSS: Estimated blood loss during reconstruction was 20 cc. INDICATIONS: The patient is a 58-year-old white female referred from Dr. Chente Whiting to discuss opti ons for reconstruction following a planned bilateral mastectomy. She was deemed an excellent tru te for immediate tissue weigher production placement in a prepectoral plane with an AlloDerm wrap, and was take n to the operating room with Dr. Whiting for that purpose. DESCRIPTION OF PROCEDURE: She was seen in the operating room by Dr. Whiting, where an uncomplicated bila teral skin sparing mastectomy was performed. At completion of procedure, new instrumentation, electr ocautery and suction were utilized. The pockets were irrigated with normal saline. Meticulous hemos tasis was assured. The pockets were rinsed with triple antibiotic saline. Once good hemostasis was assured, the Allergan Natrelle 133+ FX 350 cc tissue expanders were thoroughly tested, evacuated of a ir and filled with 200 cc of air. They were then wrapped with AlloDerm acellular dermis graft. The graft was triple rinsed in normal saline, soaked in triple antibiotic saline, and then sewn to provid e complete coverage over the tissue expanders. The tissue expanders were then sutured down to the ch est wall bilaterally in the appropriate position using 2-0 PDS suture, 15 round drains were placed. The mastectomy flaps were then evaluated. Good vascularity of the skin edges was appreciated. The i ncisions were closed using everting deep dermal 3-0 Monocryl suture and further everted using surgica l colin. The drains were placed to bulb suction. She had sterile dressings applied in the operati ng room, was extubated in the OR, and taken to recovery room awake and in stable condition. SURGEON: Bennie Haley MD TISSUE EXPANDERS: Allergan 133 FX +350 cc devices filled to 200 cc bilaterally. DRAINS: Two URIEL drains placed. COMPLICATIONS: No complications. CLINICAL COURSE: After risks and benefits of procedure were explained to the patient, highlighting b leeding, infection, tissue weigher production malposition, partial or complete flap necrosis, need for prematur e tissue weigher production removal, poor cosmetic outcome, and need for additional procedures, formal operativ e consent was obtained. /[id number]/MODL
--- NOTE | 2018-10-02 15:08 | GOP ---
[f rep st] OPERATIVE REPORT DATE OF OPERATION: 10/02/2018 SURGEON: Chente Whiting MD PLASTIC SURGEON: Dr. Haley LAMBSKIN TRIMMER: Em Wallace PA-C ANESTHESIA: General. ANESTHESIOLOGIST: Chente Painter MD PREOPERATIVE DIAGNOSIS: Left breast carcinoma. POSTOPERATIVE DIAGNOSIS: Left breast carcinoma. PROCEDURE PERFORMED: Bilateral simple mastectomy with left axillary sentinel node sampling, with immediate tissue k 9 police officer reconstruction. Port removal. FINDINGS: Mobile tumor within breast envelope. No skin or chest wall adherence. INDICATIONS: 58-year-old female with a history of a prior left breast DCIS. She has developed a secondary tumor within the ipsilateral breast. She has undergone preoperative adjuvant chemotherapy, which was curtailed prematurely secondary to severe pneumonitis requiring discontinuation mid course. Her tumor has clinically reduced by approximately 50%. She is undergoing bilateral mastectomies with left axillary sentinel node sampling at this time. Risks and benefits were explained of bleeding, infection, tumor recurrence, need for additional postoperative adjuvant therapy, arm edema, nerve injury, failure to find sentinel node, as well as a role for completion axillary dissection. All questions were answered. She desires to proceed. A surgical territory manager is standard and necessary and customary for the safe performance of this procedure. DESCRIPTION OF PROCEDURE: After general anesthesia was induced, bilateral breasts were elliptically incised, incorporating the nipple-areolar complexes. Using electrocautery, skin flaps were created to the level of the clavicle, sternum, inframammary fold, as well as latissimus dorsi muscle laterally. The left 3 o'clock tumor was completely skeletonized from beneath the skin. There was a nice soft, mobile fat plane prior to surgical dissection overlying the palpable lesion. The tumor was also mobile off the pectoralis major fascia. The skin was completely dissected away from the tumor and sent as a final anterior margin. Portions of the pectoralis major fascia and pectoralis major musculature were excised and sent as a final posterior margins. The specimens were removed from the breast, tagged for orientation and sent for permanent specimen processing. The left axilla was opened. A sentinel node was able to be identified, measuring 1500 units on the gamma counter. This was dissected away from its feeding vasculature and sent for permanent sectioning. Final background activity was all less than 70 units. No suspicious palpable adenopathy was present. Satisfactory hemostasis was assured throughout bilateral breast envelopes. Skin flaps all appeared pink and healthy. The right chest wall port pocket was dissected from beneath the skin and removed intact. Care of the case was turned to Dr. Haley for tissue k 9 police officer placement and wound closure. Copy requested to: Dr. Lindy Jorgensen /[id number]/MODL MTDD
[2018-10-02] MEDS: traMADol 50 MG TAB PO PRN ×3 (16:13→21:21)
[2018-10-02] MEDS: KETOROLAC 15 MG/1 ML SDV IVP SCH ×2 (17:17→23:57)
[2018-10-02] MEDS ORDERED: CYCLOBENZAPRINE 10 MG TAB PO PRN (21:16)
[2018-10-03] MEDS: traMADol 50 MG TAB PO PRN ×2 (04:29→10:37)
[2018-10-03] MEDS: KETOROLAC 15 MG/1 ML SDV IVP SCH ×2 (05:57→12:46)
--- NOTE | 2018-10-03 09:57 | SOAPPROG ---
SOAP Progress Note Assessment/Plan: Assessment:no overnight issues. pain controlled with tramadol and flexeril. AVSS. comfortable. flaps pink. drains thin sang. pod#1 s/p bilat mast with TE reconstr. doing very well. home today. f/u as scheduled with plastics, ONC and surg. all questions answered. Plan: 10/03/18 09:56 Objective: Vital Signs Temp Pulse Resp BP Pulse Ox 36.6 C 72 16 123/67 H 94 10/03/18 08:53 10/03/18 08:53 10/03/18 08:53 10/03/18 08:53 10/03/18 08:53 10/02/18 10/03/18 10/04/18 05:59 05:59 05:59 Intake Total 350 Output Total 1370 Balance -1020 ICD10 Worksheet Patient Problems: Problems Problem Status Onset Cervical strain Acute Left lower lobe pneumonia Acute Minor head injury without loss of consciousness Acute Tachycardia Acute Traumatic hematoma of thoracic region Acute
--- NOTE | 2018-10-03 10:21 | ASMTLACE ---
LACE Length of stay for Answers: 1 day current admission Comorbidities - select Answers: Any tumor (including all that apply lymphoma or leukemia) Other Notes: HTN # of Emergency department Answers: 1-2 visits in the last 6 months Score: 5 Date Signed: 10/03/2018 10:20 AM Electronically Signed By:Teresita Hernandez
--- NOTE | 2018-10-03 10:22 | ASMTDCNOTE ---
Case Management Discharge Discharge Order Complete? Answers: Yes Patient to Obtain Answers: Independently Medications Transportation Arranged Answers: Other Notes: private car Discharge Comments Notes: Pt here for observation. Spoke with Jaylyn Cade (Breast Cancer Nurse Navigator) and Pt has outpatient services already. Case Management available should needs arise before discharge. Plan: Discharge home Indepenantly. Date Signed: 10/03/2018 10:21 AM Electronically Signed By:Teresita Hernandez
--- NOTE | 2018-10-03 10:35 | ASMTCMCOM ---
CM Note CM Note Notes: Chart reviewed. Pt is a 58 year old admitted for Bilateral Mastectomy and reconstruction. She will discharge today with . Case management available for needs until then. Plan: Home Indepandantly Date Signed: 10/03/2018 10:34 AM Electronically Signed By:Teresita Hernandez
[2018-10-03 11:33] VITALS: BP 128/67
== END 2018-10-03 14:00 | disposition home or self-care (01) ==
LOC: F3N 08:52 → INTOOBSV 08:52 → F1N 15:50
PROVIDERS: ADMIT Surgery; ATTEND Surgery
DX: C50.912 Malignant neoplasm of unspecified site of left female breast (principal); I10 Essential (primary) hypertension; J45.909 Unspecified asthma, uncomplicated; G62.9 Polyneuropathy, unspecified
CPT/HCPCS: 19303; 19340; 36590; A9520; J0690; J1100; J1170; J1580; J1885; J2001; J2250; J2405; J2704; J3010; Q9968

== ENCOUNTER → 2018-11-19 | Outpatient (CLI) | payer OTHER | LOC: EMCIMAGING 10:14 | PROVIDERS: ATTEND Internal Medicine Pulmonary Disease | DX: Z09 Encounter for follow-up examination after completed treatment for conditions other than malignant neoplasm (principal); M85.89 Other specified disorders of bone density and structure, multiple sites; M06.9 Rheumatoid arthritis, unspecified; Z78.0 Asymptomatic menopausal state; K76.89 Other specified diseases of liver; Z85.3 Personal history of malignant neoplasm of breast; Z90.5 Acquired absence of kidney | CPT/HCPCS: 71250-PN; 77080-PN ==